=== PATIENT | female | born 1990 | race Caucasian/White ===

== ENCOUNTER → 2018-03-12 07:46 | Outpatient (CLI) | payer OTHER, SELFPAY ==
[2018-03-12 08:18] LABS: hCG Titer Quant., Serum < 1 mIU/mL (<9 non-preg)
== END ==
PROVIDERS: Family Provider Family Medicine; PCP Family Medicine; Visit Provider Obstetrics & Gynecology Reproductive Endocrinology
DX: Z32.00 Encounter for pregnancy test, result unknown (principal)
CPT/HCPCS: 36415; 84702

== ENCOUNTER → 2018-05-14 08:40 | Outpatient (CLI) | payer OTHER, SELFPAY ==
[2018-05-14 09:16] LABS: hCG Titer Quant., Serum 22 mIU/mL (<9 non-preg)
== END ==
PROVIDERS: Family Provider Family Medicine; PCP Family Medicine; Referring Provider Obstetrics & Gynecology Reproductive Endocrinology; Visit Provider Obstetrics & Gynecology Reproductive Endocrinology
DX: Z32.00 Encounter for pregnancy test, result unknown (principal)
CPT/HCPCS: 36415; 84702

== ENCOUNTER → 2018-05-16 08:14 | Outpatient (CLI) | payer OTHER, SELFPAY ==
[2018-05-16 09:08] LABS: hCG Titer Quant., Serum 28 mIU/mL (<9 non-preg)
== END ==
PROVIDERS: Family Provider Family Medicine; PCP Family Medicine; Referring Provider Obstetrics & Gynecology Reproductive Endocrinology; Visit Provider Obstetrics & Gynecology Reproductive Endocrinology
DX: Z32.01 Encounter for pregnancy test, result positive (principal)
CPT/HCPCS: 36415; 84702

== ENCOUNTER → 2018-05-26 10:17 | Outpatient (CLI) | payer OTHER, SELFPAY ==
[2018-05-26 10:48] LABS: hCG Titer Quant., Serum 2 mIU/mL (<9 non-preg)
== END ==
PROVIDERS: Family Provider Family Medicine; PCP Family Medicine; Referring Provider Obstetrics & Gynecology Reproductive Endocrinology; Visit Provider Obstetrics & Gynecology Reproductive Endocrinology
DX: Z32.01 Encounter for pregnancy test, result positive (principal)
CPT/HCPCS: 36415; 84702

== ENCOUNTER → 2018-07-23 07:37 | Outpatient (CLI) | payer OTHER, SELFPAY ==
[2018-07-23 08:30] LABS: hCG Titer Quant., Serum 139 mIU/mL (<9 non-preg)
--- OUTSIDE RECORDS SUMMARY | 2018-09-08 02:33 | XMS RPT_ITS ---
:1990 Author Organization OHIP Care Team Providers Name Role Phone ROS KELLY Attending Unavailable ROS KELLY Referring Unavailable ROS KELLY Attending Unavailable ROS KELLY Referring Unavailable ROS KELLY Attending Unavailable ROS KELLY Referring Unavailable ROBIN, ROS Attending Unavailable ROS KELLY Referring Unavailable Cebul III, Russell Primary Care Unavailable ROS KELLY Attending Unavailable ROS KELLY Referring Unavailable Cebul III, Russell Primary Care Unavailable ROS KELLY Attending Unavailable ROS KELLY Referring Unavailable Cebul III, Russell Primary Care Unavailable ROS KELLY Attending Unavailable KELLY, ROS Referring Unavailable Cebul III, Russell Primary Care Unavailable KELLY, ROS Attending Unavailable KELLY, ROS Referring Unavailable Cebul III, Russell Primary Care Unavailable KELLY, ROS Attending Unavailable KELLY, ROS Referring Unavailable Cebul III, Russell Primary Care Unavailable PROBLEMS PROBLEMS DATE TYPE CONDITION / CODE ATTENDING STATUS SOURCE 07/25/2018 Unknown Z32.01 - Encounter ROS KELLY Active [place] for test, Community result positive / Hospital Z32.01(ICD-10) Repository 07/23/2018 Unknown Z32.00 - Encounter ROS KELLY Active [place] for test, Community result unknown / Hospital Z32.00(ICD-10) Repository 11/15/2017 Admitting Encntr screen for ROBIN, ROS Soriano Active [facility] Diagnosis infections w sexl System mode of transmiss / Repository Z11.3(ICD-10) 11/15/2017 Admitting Encounter for KELLY, ROS Soriano Active [facility] Diagnosis screening for human System immunodeficiency Repository virus / Z11.4(ICD-10) 11/15/2017 Admitting Encounter for KELLY, ROS Soriano Active [facility] Diagnosis screening for oth System infec/parastc Repository diseases / Z11.8(ICD-10) 11/15/2017 Admitting Encounter for KELLY, ROS Soriano Active [facility] Diagnosis fertility testing / System Z31.41(ICD-10) Repository 10/11/2017 Admitting Encounter for ROS KELLY Active [facility] Diagnosis test, System result unknown / Repository Z32.00(ICD-10) 09/10/2017 Admitting Dysmenorrhea, ROS KELLY Active [facility] Diagnosis unspecified / System N94.6(ICD-10) Repository 09/10/2017 Admitting Polycystic ovarian ROS KELLY Active [facility] Diagnosis syndrome / System E28.2(ICD-10) Repository PROCEDURES PROCEDURES No Procedure Records FoundRESULTS RESULTS HCG TITER QUANT., Collected: 07/25/2018 Status: F Source: [place] [facility] 7:27 AM [facility] REPOSITORY TYPE CODE TESTS RESULT OUT OF RANGE REFERENCE UNITS LAB L700.8000 <9 non-preg mIU/mL High HCG 261 QUANT. Performed By: #### L700.8000 #### [facility] [place], [address] HCG TITER QUANT., Collected: 07/23/2018 Status: F Source: [place] [facility] 7:40 AM [facility] REPOSITORY TYPE CODE TESTS RESULT OUT OF RANGE REFERENCE UNITS LAB L700.8000 <9 non-preg mIU/mL High HCG 139 QUANT. Performed By: #### L700.8000 #### [facility] [address] [place], [address] HCG TITER QUANT., Collected: 05/26/2018 Status: F Source: [place] [facility] 10:21 AM [facility] REPOSITORY TYPE CODE TESTS RESULT OUT OF RANGE REFERENCE UNITS LAB L700.8000 <9 non-preg mIU/mL Normal HCG 2 QUANT. Performed By: #### L700.8000 #### [facility] [address] [place], [address] HCG TITER QUANT., Collected: 05/16/2018 Status: F Source: [place] [facility] 8:32 AM [facility] REPOSITORY TYPE CODE TESTS RESULT OUT OF RANGE REFERENCE UNITS LAB L700.8000 <9 non-preg mIU/mL High HCG 28 QUANT. Performed By: #### L700.8000 #### [facility] [address] [place], [address] HCG TITER QUANT., Collected: 05/14/2018 Status: F Source: [place] [facility] 8:47 AM [facility] REPOSITORY TYPE CODE TESTS RESULT OUT OF RANGE REFERENCE UNITS LAB L700.8000 <9 non-preg mIU/mL High HCG 22 QUANT. Performed By: #### L700.8000 #### [facility] [address] [place], [address] HCG TITER QUANT., Collected: 03/12/2018 Status: F Source: [place] [facility] 7:52 AM [facility] REPOSITORY TYPE CODE TESTS RESULT OUT OF RANGE REFERENCE UNITS LAB L700.8000 <9 non-preg mIU/mL Normal HCG < 1 QUANT. Performed By: #### L700.8000 #### [facility] [address] [place], [address] HIV 1,2 AB; P24 Collected: 11/15/2017 Status: F Source: [facility] 10:24 AM SYSTEM REPOSITORY TYPE CODE TESTS RESULT OUT OF REFERENCE UNITS RANGE LAB HIVA Nonreactive NONREACTIVE HIV 1,2 Ab; p24 Ag Result Comment: Results obtained using the FDA cleared 4th generation HIV test. This test detects antibodies to HIV1, HIV2, HIV Group O, and the presence of the HIV-1 p24 antigen. A Non-Reactive re- sult indicates the patient is negative for both HIV antibody and HIV p24 antigen. All reactive results will undergo reflex confirmation testing at an additional charge. Performed By: #### HIV4, HBSAG, HEPC, RPR #### The performing lab is in the report. HEP B SURFACE AG Collected: 11/15/2017 Status: F Source: [employer] 10:24 AM SYSTEM REPOSITORY TYPE CODE TESTS RESULT OUT OF REFERENCE UNITS RANGE LAB HBSAG Not-Detected Hep B Surface NOT DETECTED Ag Performed By: #### HIV4, HBSAG, HEPC, RPR #### The performing lab is in the report. HEP C ANTIBODY Collected: 11/15/2017 Status: F Source: [employer] 10:24 AM SYSTEM REPOSITORY TYPE CODE TESTS RESULT OUT OF REFERENCE UNITS RANGE LAB HEPC Not-Detected Hep C Antibody NOT DETECTED Result Comment: Patients with DETECTED Hepatitis C Ab results should have a new specimen submitted for supplemental testing with a Hepatitis C Quantitative RNA assay (viral load), if clinically indicated. Performed By: #### HIV4, HBSAG, HEPC, RPR #### The performing lab is in the report. RPR, QUAL Collected: 11/15/2017 Status: F Source: [employer] 10:24 AM SYSTEM REPOSITORY TYPE CODE TESTS RESULT OUT OF REFERENCE UNITS RANGE LAB RPR Non-Reactive NONREACTIVE RPR, Qual Performed By: #### HIV4, HBSAG, HEPC, RPR #### The performing lab is in the report. Observed: 11/15/2017 Status: F Source: [employer] CHLAMYDIA AND GC PCR 9:00 AM SYSTEM REPOSITORY PANEL CTPCR --> Status: F NOT Detected Chlamydia trachomatis Nucleic Acid NOT Detected by DNA Amplification using the [employer] System. Culture is the only recommended test in medical-legal cases such as suspected child abuse or molestation. Chlamydia trachomatis Nucleic Acid NOT Detected by DNA Amplification using the CepNearpodid System. Culture is the only recommended test in medical-legal cases such as suspected child abuse or molestation. NOT Detected Neisseria gonorrhoeae Nucleic Acid NOT Detected by DNA Amplification using the [employer] System. Culture is the only recommended test in medical-legal cases such as suspected child abuse or molestation. Performed By: #### CTNGP #### The performing lab is in the report. HCG QUANTITATIVE Collected: 10/11/2017 Status: F Source: [employer] 10:15 AM SYSTEM REPOSITORY TYPE CODE TESTS RESULT OUT OF REFERENCE UNITS RANGE LAB 3QWNT < 3 m[IU]/mL hCG Quantitative <2 Performed By: #### QWNT #### The performing lab is in the report. HCG QUANTITATIVE Collected: 09/10/2017 Status: F Source: [employer] 10:34 AM SYSTEM REPOSITORY TYPE CODE TESTS RESULT OUT OF REFERENCE UNITS RANGE LAB 3QWNT < 3 m[IU]/mL hCG Normal Quantitative <2 Performed By: #### QWNT #### [address] [address] 17-HYDROXYPROGESTERONE, QUANT Collected: Status: F Source: [facility] 09/10/2017 10:34 AM HEALTH SYSTEM REPOSITORY TYPE CODE TESTS RESULT OUT OF REFERENCE UNITS RANGE LAB 17HPR <=206.00 ng/dL 17 [place] Normal Progesterone 34.80 Result Comment: INTERPRETIVE INFORMATION for 17-Hydroxyprogesterone in females: Follicular 15 to 70 ng/dL Luteal 35 to 290 ng/dL REFERENCE INTERVAL: 17-Hydroxyprogesterone Qnt, HPLC-MS/MS Access complete set of age- and/or gender-specific reference intervals for this test in the [employer] [facility] Test Directory ([employer]). Test developed and characteristics determined by [employer]. See Compliance Statement B: [employer]/CS Performed by [employer], [address] [place] [address] www.[employer], Wei Sheppard MD - Lab. Director Performed By: #### QWNT #### [address] [address] ALLERGIES ALLERGIES No Allergies Records FoundENCOUNTERS ENCOUNTERS ADMIT/DISCHARGE ACCOUNT NUMBER ADMITTING ENCOUNTER LOCATION SOURCE CLASS 07/25/2018 [id number] Ambulatory [facility] ding:LAB Repository 07/23/2018 [id number] Ambulatory [facility] ding:LAB Repository 05/26/2018 [id number] Ambulatory [facility] ding:LAB Repository 05/16/2018 [id number] Ambulatory [facility] ding:LAB Repository 05/14/2018 [id number] Ambulatory [facility] ding:LAB Repository 03/12/2018 [id number] Ambulatory [facility] ding:LAB Repository 11/15/2017 [id number] Ambulatory [facility] Repository 10/11/2017 [id number] Ambulatory [facility] Repository 09/10/2017 [id number] Ambulatory [facility] Repository PAYERS PAYERS ENCOUNTER GUARANTOR PAYER SUBSCRIBER SOURCE 07/25/2018 LILLIE Crum [id number] Primary NILSON E LABDOB: [place] Insurance:[employer] [id number] Number: [facility] [id number]: 330 [id number] Repository [phone] () Date:1137-77-36BG [address] [address]LO: 07/25/2018 Secondary NOT GIVENUNK [place] Insurance:SELF PAY [facility] Number: Effective Repository Date:2018-07-25 07/23/2018 LILLIE Crum [id number] Primary NILSON E LABDOB: [place] Insurance:[employer] [place]HotelHotel)[facility] [id number] Number: Hospital [id number]: 330 [id number] Repository [phone] () Date:3248-85-02RX [address] [address]CG: 07/23/2018 Secondary NOT GIVENUNK [place] Insurance:SELF PAY [facility] Number: Effective Repository Date:2018-07-23 05/26/2018 LILLIE Crum [id number] Primary NILSON E LABDOB: [place] Insurance:[employer] [place]elHotel)[facility] [id number] Number: Hospital [id number]: 330 [id number] Repository [phone] (HP) Date:3678-20-57BJ [address] [address]UI: 05/26/2018 Secondary NOT GIVENUNK [place] Insurance:SELF PAY [facility]: Effective Repository Date:2018-05-26 05/16/2018 LILLIE L [id number] Primary NILSON E LABDOB: [place] [facility] [id number] Number: Hospital [id number]: 330 [id number] Repository [phone] (HP) Date:9127-03-18JN [address] [address]LQ: 05/16/2018 Secondary NOT GIVENUNK [place] Insurance:SELF PAY [facility] Number: Effective Repository Date:2018-05-16 05/14/2018 LILLIE L [id number] Primary NILSON E LABDOB: [place] Insurance:[facility] [id number] Number: Hospital [id number]: 330 [id number] Repository [phone] () Date:8321-55-14AJ [address] [address]II: 05/14/2018 Secondary NOT GIVENUNK [place] Insurance:SELF PAY [facility] Number: Effective Repository Date:2018-05-14 03/12/2018 LILLIE L [id number] Primary NILSON LABUNK [place] Insurance:[place] icy Number: Hospital [id number]: 330 [id number] Repository [phone] (HP) Date:4522-11-92VM [address] [address]GS: 03/12/2018 Secondary NOT GIVENUNK [place] Insurance:SELF PAY [facility] Number: Effective Repository Date:2018-03-12 11/15/2017 Lillie L LabDOB: Primary Lillie L LabDOB: [facility] Insurance:[employer] [id number] System [place] icy Number: Effective Repository [place], [place] Date: [address]Aqf: (HP) 10/11/2017 Lillie L LabDOB: Primary Lillie L LabDOB: [facility] Insurance:[employer] [id number] System [place] icy Number: Effective [place]ository [place], [place] Date: [address]Arg: (HP) 09/10/2017 Lillie L LabDOB: Primary Lillie L LabDOB: [facility] Insurance:[employer] [id number] System [place] icy Number: Effective Repository [place], [place] Date: [address]Cgw: (HP)
== END ==
PROVIDERS: Family Provider Family Medicine; PCP Family Medicine; Referring Provider Obstetrics & Gynecology Reproductive Endocrinology; Visit Provider Obstetrics & Gynecology Reproductive Endocrinology
DX: Z32.00 Encounter for pregnancy test, result unknown (principal)
CPT/HCPCS: 36415; 84702

== ENCOUNTER → 2018-07-25 07:24 | Outpatient (CLI) | payer OTHER, SELFPAY ==
[2018-07-25 07:58] LABS: hCG Titer Quant., Serum 261 mIU/mL (<9 non-preg)
--- OUTSIDE RECORDS SUMMARY | 2018-09-09 19:06 | XMS RPT_ITS ---
[...] Unknown Z32.01 - Encounter ROS KELLY Active [place] for test, Community result positive / Hospital Z32.01(ICD-10) Repository 07/23/2018 Unknown Z32.00 - Encounter ROS KELLY Active [facility] for test, Community result unknown / Hospital Z32.00(ICD-10) Repository 11/15/2017 Admitting Encntr screen for ROBIN, ROS Soriano Active [employer] Diagnosis infections w sexl System mode of transmiss / Repository Z11.3(ICD-10) 11/15/2017 Admitting Encounter for KELLY, ROS Soriano Active [facility] Diagnosis screening for human System immunodeficiency Repository virus / Z11.4(ICD-10) 11/15/2017 Admitting Encounter for KELLY, ROS Soriano Active [facility] Diagnosis screening for oth System infec/parastc Repository diseases / Z11.8(ICD-10) 11/15/2017 Admitting Encounter for KELLY, ROS Soriano Active [facility] Diagnosis fertility testing / System Z31.41(ICD-10) Repository 10/11/2017 Admitting Encounter for ROS KELLY Active [facility] Diagnosis test, System result unknown / Repository Z32.00(ICD-10) 09/10/2017 Admitting Dysmenorrhea, ROS KELLY Active [facility] Diagnosis unspecified / System N94.6(ICD-10) Repository 09/10/2017 Admitting Polycystic ovarian ROS KELLY Active [facility] Diagnosis syndrome / System E28.2(ICD-10) Repository PROCEDURES PROCEDURES No Procedure Records FoundRESULTS RESULTS HCG TITER QUANT., Collected: 07/25/2018 Status: F Source: [place] [facility] 7:27 AM [facility] REPOSITORY TYPE CODE TESTS RESULT OUT OF RANGE REFERENCE UNITS LAB L700.8000 <9 non-preg mIU/mL High HCG 261 QUANT. Performed By: #### L700.8000 #### [facility] [place], [address] HCG TITER QUANT., Collected: 07/23/2018 Status: F Source: [place] [facility] 7:40 AM [facility] REPOSITORY TYPE CODE TESTS RESULT OUT OF RANGE REFERENCE UNITS LAB L700.8000 <9 non-preg mIU/mL High HCG 139 QUANT. Performed By: #### L700.8000 #### [facility] [address] [place], [address] HCG TITER QUANT., Collected: 05/26/2018 Status: F Source: [place] [facility] 10:21 AM [facility] REPOSITORY TYPE CODE TESTS RESULT OUT OF RANGE REFERENCE UNITS LAB L700.8000 <9 non-preg mIU/mL Normal HCG 2 QUANT. Performed By: #### L700.8000 #### [facility] [address] [place], [address] HCG TITER QUANT., Collected: 05/16/2018 Status: F Source: [place] [facility] 8:32 AM [facility] REPOSITORY TYPE CODE TESTS RESULT OUT OF RANGE REFERENCE UNITS LAB L700.8000 <9 non-preg mIU/mL High HCG 28 QUANT. Performed By: #### L700.8000 #### [facility] [address] [place], [address] HCG TITER QUANT., Collected: 05/14/2018 Status: F Source: [place] [facility] 8:47 AM [facility] REPOSITORY TYPE CODE TESTS RESULT OUT OF RANGE REFERENCE UNITS LAB L700.8000 <9 non-preg mIU/mL High HCG 22 QUANT. Performed By: #### L700.8000 #### [facility] [address] [place], [address] HCG TITER QUANT., Collected: 03/12/2018 Status: F Source: [place] [facility] 7:52 AM [facility] REPOSITORY TYPE CODE TESTS RESULT OUT OF RANGE REFERENCE UNITS LAB L700.8000 <9 non-preg mIU/mL Normal HCG < 1 QUANT. Performed By: #### L700.8000 #### [facility] [address] [place], [address] HIV 1,2 AB; P24 Collected: 11/15/2017 Status: F Source: [facility] [facility] 10:24 AM SYSTEM REPOSITORY TYPE CODE [...] SURFACE AG Collected: 11/15/2017 Status: F Source: [employer] 10:24 AM SYSTEM REPOSITORY TYPE CODE TESTS RESULT OUT OF REFERENCE UNITS RANGE LAB HBSAG Not-Detected Hep B Surface NOT DETECTED Ag Performed By: #### HIV4, HBSAG, HEPC, RPR #### The performing lab is in the report. HEP C ANTIBODY Collected: 11/15/2017 Status: F Source: [employer] 10:24 AM SYSTEM REPOSITORY TYPE CODE TESTS [...] RPR, QUAL Collected: 11/15/2017 Status: F Source: [employer] 10:24 AM SYSTEM REPOSITORY TYPE CODE TESTS RESULT OUT OF REFERENCE UNITS RANGE LAB RPR Non-Reactive NONREACTIVE RPR, Qual Performed By: #### HIV4, HBSAG, HEPC, RPR #### The performing lab is in the report. Observed: 11/15/2017 Status: F Source: [employer] CHLAMYDIA AND GC PCR 9:00 AM SYSTEM REPOSITORY PANEL CTPCR --> Status: F NOT Detected Chlamydia trachomatis Nucleic Acid NOT Detected by DNA Amplification using the [employer] System. Culture is the only recommended test in medical-legal cases such as suspected child abuse or molestation. Chlamydia trachomatis Nucleic Acid NOT Detected by DNA Amplification using the CepFARR Technologies[employer] System. Culture is the only recommended test in medical-legal cases such as suspected child abuse or molestation. NOT Detected Neisseria gonorrhoeae Nucleic Acid NOT Detected by DNA Amplification using the [employer] System. Culture is the only recommended test in medical-legal cases such as suspected child abuse or molestation. Performed By: #### CTNGP #### The performing lab is in the report. HCG QUANTITATIVE Collected: 10/11/2017 Status: F Source: [employer] 10:15 AM SYSTEM REPOSITORY TYPE CODE TESTS RESULT OUT OF REFERENCE UNITS RANGE LAB 3QWNT < 3 m[IU]/mL hCG Quantitative <2 Performed By: #### QWNT #### The performing lab is in the report. HCG QUANTITATIVE Collected: 09/10/2017 Status: F Source: [employer] 10:34 AM SYSTEM REPOSITORY TYPE CODE TESTS RESULT OUT OF REFERENCE UNITS RANGE LAB 3QWNT < 3 m[IU]/mL hCG Normal Quantitative <2 Performed By: #### QWNT #### [address] [address] 17-HYDROXYPROGESTERONE, QUANT Collected: Status: F Source: [facility] 09/10/2017 10:34 AM HEALTH SYSTEM REPOSITORY TYPE CODE TESTS RESULT OUT OF REFERENCE UNITS RANGE LAB 17HPR <=206.00 ng/dL 17 [place] Normal Progesterone 34.80 Result Comment: INTERPRETIVE INFORMATION for 17-Hydroxyprogesterone in females: Follicular 15 to 70 ng/dL Luteal 35 to 290 ng/dL REFERENCE INTERVAL: 17-Hydroxyprogesterone Qnt, HPLC-MS/MS Access complete set of age- and/or gender-specific reference intervals for this test in the [facility] Test Directory ([employer]). Test developed and characteristics determined by [employer]. See Compliance Statement B: [employer]/CS Performed by [facility], [address] [place] [address] www.[employer], Wei Sheppard MD - Lab. Director Performed By: #### QWNT #### [address] [address] ALLERGIES ALLERGIES No Allergies Records FoundENCOUNTERS ENCOUNTERS ADMIT/DISCHARGE ACCOUNT NUMBER ADMITTING ENCOUNTER LOCATION SOURCE CLASS 07/25/2018 [id number] Ambulatory [facility] ding:LAB Repository 07/23/2018 [id number] Ambulatory [facility] ding:LAB Repository 05/26/2018 [id number] Ambulatory [facility] ding:LAB Repository 05/16/2018 [id number] Ambulatory [facility] ding:LAB Repository 05/14/2018 [id number] Ambulatory [facility] ding:LAB Repository 03/12/2018 [id number] Ambulatory [facility] ding:LAB Repository 11/15/2017 [id number] Ambulatory [facility] Repository 10/11/2017 [id number] Ambulatory [facility] Repository 09/10/2017 [id number] Ambulatory [facility] Repository PAYERS PAYERS ENCOUNTER GUARANTOR PAYER SUBSCRIBER SOURCE 07/25/2018 LILLIE Crum [id number] Primary NILSON E LABDOB: [place] Insurance:[employer] [facility] [id number] Number: [facility] [id number]: 330 [id number] Repository [phone] () Date:6791-26-27CA [address] [address]RF: 07/25/2018 Secondary NOT GIVENUNK [place] Insurance:SELF PAY [facility] Number: Effective Repository Date:2018-07-25 07/23/2018 LILLIE Crum [id number] Primary NILSON E LABDOB: [place] Insurance:[employer] [facility] [id number] icy Number: Hospital [id number]: 330 [id number] Repository [phone] () Date:5427-60-99BY [address] [address]PA: 07/23/2018 Secondary NOT GIVENUNK [place] Insurance:SELF PAY [facility] Number: Effective Repository Date:2018-07-23 05/26/2018 LILLIE Crum [id number] Primary NILSON E LABDOB: [place] Insurance:[employer] [facility] [id number] icy Number: Hospital [id number]: 330 [id number] Repository [phone] (HP) Date:6837-70-44BX [address] [address]FU: 05/26/2018 Secondary NOT GIVENUNK [place] Insurance:SELF PAY [facility] Number: Effective Repository Date:2018-05-26 05/16/2018 LILLIE L [id number] Primary NILSON E LABDOB: [place] Insurance:[facility] [id number], [place] icy Number: Hospital [id number]: 330 [id number] Repository [phone] (HP) Date:4911-24-03MI [address] [address]KG: 05/16/2018 Secondary NOT GIVENUNK [place] Insurance:SELF PAY [facility] Hospital Number: Effective Repository Date:2018-05-16 05/14/2018 LILLIE L [id number] Primary NILSON E LABDOB: [place] Insurance:[facility] [id number], [place] icy Number: Hospital [id number]: 330 [id number] Repository [phone] () Date:3938-03-86GY [address] [address]MZ: 05/14/2018 Secondary NOT GIVENUNK [place] Insurance:SELF PAY [facility] Hospital Number: Effective Repository Date:2018-05-14 03/12/2018 LILLIE L [id number] Primary INLSON LABUNK [place] Insurance:[place], [place] icy Number: Hospital [id number]: 330 [id number] Repository [phone] (HP) Date:2419-21-18TQ [address] [address]KF: 03/12/2018 Secondary NOT GIVENUNK [place] Insurance:SELF PAY [facility] Hospital Number: Effective Repository Date:2018-03-12 11/15/2017 Lillie L LabDOB: Primary Lillie L LabDOB: [employer] Insurance:[employer] [id number] System [place] icy Number: Effective Repository [place], [place] Date: [address]Gsn: (HP) 10/11/2017 Lillie L LabDOB: Primary Lillie L LabDOB: [employer] Insurance:[employer] [id number] System [place] icy Number: Effective [place], [place] Date: [address]Suc: (HP) 09/10/2017 Lillie L LabDOB: Primary Lillie L LabDOB: [employer] Insurance:[employer] [id number] System [place] icy Number: Effective Repository [place], [place] Date: [address]Ycc: (HP)
== END ==
PROVIDERS: Family Provider Family Medicine; PCP Family Medicine; Referring Provider Obstetrics & Gynecology Reproductive Endocrinology; Visit Provider Obstetrics & Gynecology Reproductive Endocrinology
DX: Z32.01 Encounter for pregnancy test, result positive (principal)
CPT/HCPCS: 36415; 84702

== ENCOUNTER → 2018-10-27 12:15 | Outpatient (CLI) | payer OTHER, SELFPAY ==
[2018-10-27 09:11] VITALS: BMI 22.6
== END ==
PROVIDERS: Family Provider Family Medicine; PCP Family Medicine; Referring Provider Obstetrics & Gynecology; Visit Provider Obstetrics & Gynecology
DX: R30.0 Dysuria (principal)
CPT/HCPCS: 87086; 87088

== ENCOUNTER → 2019-01-12 | Outpatient (CLI) | payer OTHER, SELFPAY ==
[2019-01-12 08:59] VITALS: BMI 22.6
[2019-01-12 10:15] LABS: Absolute Lymphocyte Count 1.89 X10^3/ul (0.83-4.51); Absolute Neutrophil Count 8.6 X10^3/uL (2.0-7.7); Basophil# 0.02 X10^3/uL; Basophil% 0.2 % (0-1); Eosinophil# 0.03 X10^3/uL; Eosinophils% 0.3 % (0-5); Hematocrit 32.4 % (37-47); Lymphocyte # 1.89 X10^3/ul (4.0); Lymphocyte % 16.7 % (19-41); Mean Corpuscular Hgb 32.9 pg (27.0-32.0); Mean Platelet Vol. 10.2 fl (6.2-12.0); Monocyte# 0.73 X10^3/uL; Monocyte% 6.4 % (0-10); Neutrophil % 75.9 % (47-70); Platelet Count 214 K/mm3 (150-450); RBC Distribution Width CV 13.5 % (11.6-14.6); RBC Distribution Width SD 46.5 fl (35.1-43.9); Red Blood Count 3.34 M/mm3 (4.2-5.4); White Blood Count 11.3 K/mm3 (4.4-11.0)
[2019-01-12 10:18] LABS: POSITIVE COUNT NO; POSITIVE DIFFERENTIAL NO; POSITIVE MORPHOLOGY NO
[2019-01-12 10:23] LABS: Glucose Challenge Gest 1H 50g 141 mg/dL (70-140)
== END | disposition home or self-care (01) ==
LOC: PAVLAB 09:01
PROVIDERS: Family Provider Family Medicine; PCP Family Medicine; Visit Provider Nurse Practitioner Women's Health
DX: O09.90 Supervision of high risk pregnancy, unspecified, unspecified trimester (principal); Z3A.00 Weeks of gestation of pregnancy not specified
CPT/HCPCS: 36415; 82950; 85025; 86850; 86900

== ENCOUNTER → 2019-01-13 06:57 | Outpatient (CLI) | payer OTHER, SELFPAY ==
[2019-01-12 08:59] VITALS: BMI 22.6
[2019-01-13 07:59] LABS: Glucose GTT-Gestation. Fasting 79 mg/dL (<105)
[2019-01-13 09:24] LABS: Glucose GTT-Gestational 1 Hr 133 mg/dL (<190)
[2019-01-13 10:50] LABS: Glucose GTT-Gestational 2 Hr 134 mg/dL (<165)
[2019-01-13 11:26] LABS: Glucose GTT-Gestational 3 Hr 125 L (<145)
== END ==
PROVIDERS: Family Provider Family Medicine; PCP Family Medicine; Referring Provider Nurse Practitioner Women's Health; Visit Provider Nurse Practitioner Women's Health
DX: R73.09 Other abnormal glucose (principal)
CPT/HCPCS: 36415; 82951; 82952

== ENCOUNTER → 2019-03-10 17:05 | Outpatient (CLI) | payer OTHER, SELFPAY ==
[2019-03-10 09:03] VITALS: BMI 22.6
== END ==
PROVIDERS: Family Provider Family Medicine; PCP Family Medicine; Referring Provider Obstetrics & Gynecology; Visit Provider Obstetrics & Gynecology
DX: Z36.85 Encounter for antenatal screening for Streptococcus B (principal)
CPT/HCPCS: 87081

== ENCOUNTER 2019-03-12 08:25 | Inpatient (IN) | payer OTHER, SELFPAY ==
[2019-03-10 09:03] VITALS: BMI 22.6
[2019-03-12 07:07] VITALS: BMI 26.8
[2019-03-12 07:17] LABS: Hematocrit 36.9 % (37-47); Hemoglobin 12.8 g/dL (12.0-15.0); Mean Corp Hgb Conc 34.7 g/dL (32-36); Mean Corpuscular Hgb 33.3 pg (27.0-32.0); Mean Corpuscular Volume 96.1 fL (81-99); Platelet Count 164 K/mm3 (150-450); RBC Distribution Width CV 13.1 % (11.6-14.6); RBC Distribution Width SD 45.6 fl (35.1-43.9); Red Blood Count 3.84 M/mm3 (4.2-5.4); White Blood Count 11.1 K/mm3 (4.4-11.0)
[2019-03-12 07:24] LABS: AST(SGOT) 14 U/L (15-37); Alanine Aminotransfer ALT/SGPT 14 U/L (13-56); Creatinine, Serum 0.69 mg/dL (0.55-1.02); EST Glomerular Filtration Rate 109 mL/min (>60); Est Glom Filt Rate - Afr Amer 131 mL/min (>60); Estimated Creatinine Clearance 101.31 ml/min; Uric Acid 4.6 mg/dL (2.6-6.0)
[2019-03-12 07:25] LABS: Protein, Urine (Random) 10.9 mg/dL (<11.9); Protein:Creat Ratio 371 mg/g CRE (0-200)
[2019-03-12] MEDS: Acetaminophen/Butalbital/Caffe 1 Tablet PO (08:17)
[2019-03-12 08:42] LABS: Partial Thromboplast Time 23.5 Seconds (24.1-36.2)
[2019-03-12] MEDS: 0.9% Saline Lock 10 ML Syringe IV (09:30)
[2019-03-12] MEDS: Oxytocin 30 units/NS 500 ml 30 UNITS/500 ML IV.SOLN IV (09:30)
[2019-03-12] MEDS: 0.9% Normal Saline 100 ML IV.SOLN. INTRA-UTER (09:30)
[2019-03-12] MEDS: Lactated Ringers 1,000 ML 50 ML IV ×3 (09:30→20:04)
--- NOTE | 2019-03-12 15:14 | PCM.HP.OB ---
- Problem List (1) Pre-eclampsia, mild Status: Acute (2) Abnormal glucose affecting Status: Acute Comment: 3GTT normal (3) Supervision of high risk , antepartum Status: Acute Comment: PRR HUGH 04/01/19 gender surprise Catalino (4) Infertility Status: Acute Comment: Frozen Embryo Transfer, cycle number 3. Echo offered- patient to think it over (5) Blood type, Rh negative Status: Acute Comment: rhogam given at 28 weeks (6) Status: Acute Qualifiers: Weeks of gestation: 36 weeks Qualified Code(s): Z3A.36 - 36 weeks gestation of Comment: NIPT nl, gender surprise, carrier negative, discussed AFP. anatomy US WNL. History Date of Admission: 03/12/19 Final HUGH: 04/01/19 Gestational age: 37 Weeks and 2 Days History of this : This is a 29 year-old, G 1P0 at 37 weeks 1 day presents with elevated blood pressures and proteinuria and new diagnosis of preeclampsia with mild features. Patient has had a headache but it does improve with Fioricet. She denies any visual disturbances. She denies any vaginal bleeding or loss of fluid admits good movement no regular contractions. Allergies azithromycin Adverse Reaction (Verified 03/12/19 07:03) Other pt states GI upset Sulfa (Sulfonamide Antibiotics) Adverse Reaction (Verified 03/12/19 07:03) Rash Home Medications: Home Medications Colace 100 mg PO DAILY PRN 03/12/19 Tablet 1 tab PO DAILY PRN 03/12/19 Smoking Status: Never smoker Number of Fetus(es): 1 Heart Tracin moderate variability reactive no decelerations currently 1 tracing [place]: No regular contractions History Past Pregnancies: Past Pregnancies Delivery Date Name GA/Weeks Outcome Route Weight Gender Labor Length Anesthesia Delivery Location Provider FOB Labs: Mom's Labs & Results 03/12/19 03/12/19 03/12/19 06:55 06:55 06:55 WBC 11.1 H RBC 3.84 L Hgb 12.8 Hct 36.9 L MCV 96.1 MCH 33.3 H MCHC 34.7 RDW Std Deviation 45.6 H RDW Coeff of [place]iny[place] 13.1 Plt Count 164 MPV 12.0 PT Cancelled INR Cancelled APTT Cancelled Creatinine 0.69 Estim Creat Clear Calc 101.31 Est GFR (MDRD) Af Amer 131 Est GFR (MDRD) Non-Af 109 Uric Acid 4.6 AST 14 L ALT 14 U Random Total Protein Urine Creatinine Protein/Creatinin Ratio Blood Type Antibody Screen 03/12/19 03/12/19 03/12/19 06:55 06:55 06:55 WBC RBC Hgb Hct MCV MCH MCHC RDW Std Deviation RDW Coeff of [place] Plt Count MPV PT INR APTT Creatinine Estim Creat Clear Calc Est GFR (MDRD) Af Amer Est GFR (MDRD) Non-Af Uric Acid AST ALT U Random Total Protein 10.9 Urine Creatinine 29.40 Protein/Creatinin Ratio 371 H Blood Type A NEGATIVE Antibody Screen Not Reportable NEGATIVE 03/12/19 07:55 WBC RBC Hgb Hct MCV MCH MCHC RDW Std Deviation RDW Coeff of [place] Plt Count MPV PT 13.0 INR 1.0 APTT 23.5 L Creatinine Estim Creat Clear Calc Est GFR (MDRD) Af Amer Est GFR (MDRD) Non-Af Uric Acid AST ALT U Random Total Protein Urine Creatinine Protein/Creatinin Ratio Blood Type Antibody Screen Course Did the patient receive Yes care? Labs Blood Type: A RH: NEGATIVE RPR/VDRL/Syphilis Nonreactive Rubella status Immune HbSAg Negative Date Done: 08/22/18 Chlamydia Negative Gonorrhea Negative HIV/AIDS Non-Reactive Group B Strep: Collected on Admission Current Obstetrical History Gestational Diabetes No Incompetent Cervix No Infertility Yes IUGR No Macrosomia No Hypertension/Pre-eclampsia Yes Placenta Previa/Abruption No PTL/PROM No Uterine anomaly No Oligohydramnios No Polyhydramnios No Multiple gestation No Past Medical History Asthma No Diabetes No Hypertension No Heart disease Yes Mitral valve prolapse No Neurologic/Seizure disorder/ No Migraines Kidney disease No Liver disease No Varicosities No Clotting disorders/Hx of DVT No Thyroid Dysfunction No Other medical diseases No Psychiatric disorders No Major trauma No Abnormal PAP smear No Sleep apnea No Mammogram in the last 2 years No Enter DETAILS of medical mild leak of aortic valve history Social History Marital Status: Alleged father Catalino Hx Smoking No Smoking Status Never smoker Expected Infant Delivery Method: Spontaneous Vaginal Review of Systems Constitutional: Denies: Fever, Malaise Eyes: Denies: Blurred vision, Vision Change HEENT: Reports: Head Aches. Denies: Visual Changes Cardiovascular: Denies: Chest Pain, Palpitations Respiratory: Denies: Cough, Shortness of Breath, Wheezing Gastrointestinal: Denies: Abdominal Pain, Diarrhea, Nausea, Vomiting Genitourinary: Denies: Dysuria, Hematuria Musculoskeletal: Denies: Joint Pain, Muscle pain Skin: Denies: Lesions, Rash Neurological: Reports: Headaches. Denies: Blurred vision, Focal weakness Psychiatric: Denies: Anxiety, Depression Endocrine: Denies: Heat/ Cold Intolerance Hematologic/ Lymphatic: Denies: Easy Bruising, Easy Bleeding Physical Exam General: Alert, Cooperative, No apparent distress HEENT: Atraumatic, Normocephalic. Negative for: Thyromegaly, Lymphadenopathy Cardiovascular: Regular rate Lungs: Normal air movement Abdomen: Soft, Non Tender, Gravid Neurological: Deep Tendon Reflexes 2+/4 and Symmetrical, Neuro grossly intact. 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 Negative for: Vulvar lesions Estimated gestational size: Appropriate for gestational size Presentation: Cephalic Cervix Dilation (cm): 1 Station: -2 Effacement (%): 50 Assessment/Plan All Active Problems (Last Reviewed 03/10/19 @ 08:50 by Eladia Morrison) Pre-eclampsia, mild (Acute) Abnormal glucose affecting (Acute) Supervision of high risk , antepartum (Acute) Infertility (Acute) Blood type, Rh negative (Acute) (Acute) This is a 29 year-old, G 1P0, at 37 weeks gestational age induction of labor preeclampsia with mild features. Patient presents IOL, plan management for , pitocin/AROM after fb. Pain management: Plans epidural. GBS unknown but possible positive so penicillin given. Management of any complications: Proteinuria but other labs within normal limits I have reviewed the [facility] and made any clinically relevant updates.
[2019-03-12] MEDS: fentaNYL-bupivacaine (epidural) 100 ML BAG EPIDURAL ×2 (17:33→22:00)
[2019-03-13] MEDS: Lactated Ringers 1,000 ML 50 ML IV (01:19)
[2019-03-13] MEDS: fentaNYL-bupivacaine (epidural) 100 ML BAG EPIDURAL (02:15)
[2019-03-13] MEDS: Oxytocin 30 units/NS 500 ml 30 UNITS/500 ML IV.SOLN 334 UNITS IV (04:45)
[2019-03-13] MEDS: Methylergonovine 0.2 MG/ML Ampul IM (04:48)
[2019-03-13] MEDS: miSOPROStol 200 MCG Tablet 1000 MCG RECTAL (04:55)
[2019-03-13] MEDS: Ondansetron 4 MG/2 ML Vial IV (04:58)
[2019-03-13] MEDS: Oxytocin 30 units/NS 500 ml 30 UNITS/500 ML IV.SOLN 167 UNITS IV (05:15)
--- NOTE | 2019-03-13 05:45 | OP.PCM_ITS ---
Problem List (1) Pre-eclampsia, mild Status: Acute (2) Abnormal glucose affecting Status: Acute Comment: 3GTT normal (3) Supervision of high risk , antepartum Status: Acute Comment: PRR HUGH 04/01/19 gender surprise Catalino (4) Infertility Status: Acute Comment: Frozen Embryo Transfer, cycle number 3. Echo offered- patient to think it over (5) Blood type, Rh negative Status: Acute Comment: rhogam given at 28 weeks (6) Status: Acute Qualifiers: Weeks of gestation: 36 weeks Qualified Code(s): Z3A.36 - 36 weeks gestation of Comment: NIPT nl, gender surprise, carrier negative, discussed AFP. anatomy US WNL. (7) Vaginal delivery Status: Acute (8) Uterine atony Status: Acute Vaginal Delivery Maternal Presentation: Medically Indicated Induction Induction labor preeclampsia 37 weeks Method of Induction: Pitocin, Bose Bulb Medical Reason for Induction: Preeclampsia, eclampsia Amniotic Membrane Rupture Type: Artificial Amniotic Fluid Description: Clear Final HUGH: 04/01/19 Gestational age: 37 Weeks and 2 Days Date of Procedure: 03/13/19 Pre-Operative Diagnosis: Preeclampsia with mild features Post-Operative Diagnosis: same Surgery/ Procedure Performed: Spontaneous Vaginal Delivery Type of Anesthesia: Epidural Description of Procedure: Patient began pushing and delivered the head in the CHERYL presentation. The head was delivered atraumatically and a loose nuchal cord ?1 was identified and easily reduced over the 's head. The anterior and posterior shoulders delivered without complication followed by the rest of the infant and the was placed on the maternal abdomen. Delayed cord clamping was employed for approximately 60 seconds. Cord was clamped and cut and gentle traction was applied to the cord and the placenta delivered spontaneously immediately following it was noted to be intact with three-vessel cord. The perineum and vagina were inspected and noted to have a second-degree perineal laceration was repaired in the usual fashion with 3-0 Vicryl rapide. Uterine atony was encountered and remedied with bimanual massage, patient's blood pressures had been low throughout the second half of the labor immediately prior to delivery, medicines given were Methergine Hemabate Pitocin and tranexamic acid. Curettage was also performed due to suspicion of retained products but no significant tissue was collected and the lining felt to be within normal limits on manual exploration.. EBL was 800. Patient and infant tolerated delivery well. Presentation: CHERYL Placental Delivery Description: Spontaneous Placenta Disposition: [facility] Cord Vessel Description: 3 Vessels Nuchal Cord Compression: Without compression Cord Entanglement: Around neck x 1, loose Drain: Bose to straight drain Estimated Blood Loss: 800 A gender: Female Episiotomy Description: None Laceration: Perineal Extension/lac, 2nd degree Medications given after delivery: IV Pitocin, IM Methergin, IM Hemabate, - - tranexamic acid Complications: - - uterine atony, will monitor blood loss for next 24 hours to diagnose PPH if over 1000cc Multi Select Codes - Urinary/Genital Urinary/Genital CPT Codes: 53304 Delivery [facility]
[2019-03-13] MEDS: 0.9% Saline Lock 10 ML Syringe IV ×2 (07:28→21:01)
[2019-03-13] MEDS: Senna/Docusate Sodium 1 Tablet PO (07:41)
[2019-03-13] MEDS: Acetaminophen 500 MG Tablet 1000 MG PO ×2 (07:42→17:38)
[2019-03-13 08:00] VITALS: BP 115/60; PULSE 79; RESP 17; TEMP 36.7; O2SAT 98
[2019-03-13 12:30] VITALS: BP 118/75; PULSE 90; RESP 17; TEMP 36.6; O2SAT 100
[2019-03-13] MEDS: Naproxen 250 MG Tablet 500 MG PO ×2 (13:40→22:25)
[2019-03-13 15:18] LABS: Hemoglobin 10.9 g/dL (12.0-15.0); Mean Corp Hgb Conc 35.2 g/dL (32-36); Mean Corpuscular Volume 96.6 fL (81-99); Mean Platelet Vol. 12.1 fl (6.2-12.0); Platelet Count 162 K/mm3 (150-450); RBC Distribution Width CV 12.9 % (11.6-14.6); RBC Distribution Width SD 45.3 fl (35.1-43.9); Red Blood Count 3.21 M/mm3 (4.2-5.4)
[2019-03-13 15:58] VITALS: BP 118/78; PULSE 81; RESP 16; TEMP 36.7; O2SAT 98
[2019-03-13 21:04] VITALS: BP 110/79; PULSE 96; RESP 18; TEMP 36.7
[2019-03-14 00:49] VITALS: BP 118/79; PULSE 82; RESP 16; TEMP 36.3
[2019-03-14 04:55] VITALS: BP 103/65; PULSE 90; RESP 16; TEMP 36.8
[2019-03-14 08:15] VITALS: BP 118/78; PULSE 85; RESP 16; TEMP 36.6; O2SAT 98
--- NOTE | 2019-03-14 09:14 | PCM.PN.OB ---
Patient Problems: Active and Suspected Problems (Last Reviewed 03/10/19 @ 08:50 by Eladia Morrison) Pre-eclampsia, mild (Acute) Vaginal delivery (Acute) Uterine atony (Acute) Subjective: doing well no complaints pain controlled no CP SOB N V ambulating well tolerating po lochia moderate, going well - Physical Exam General: Alert, Oriented x3 Vital Signs Temp Pulse Resp BP Pulse Ox 98 F 85 16 118/78 98 03/14/19 08:15 03/14/19 08:15 03/14/19 08:15 03/14/19 08:15 03/14/19 08:15 Oxygen Delivery Method Room Air Weight: 153 lb 10.595 oz Body Mass Index (BMI) 26.8 Intake and Output for Last 24 Hours 03/12/19 03/13/19 03/14/19 23:59 23:59 23:59 Intake Total 1500 / 1500 2106 / 2106 Output Total 700 / 700 1598 / 1598 Balance 800 / 800 508 / 508 Laboratory Tests Past 24 Hrs 03/13/19 15:09 WBC 28.0 H RBC 3.21 L Hgb 10.9 L Hct 31.0 L MCV 96.6 MCH 34.0 H MCHC 35.2 RDW Std Deviation 45.3 H RDW Coeff of [place] 12.9 Plt Count 162 MPV 12.1 H Medical Necessity - Tobacco Use Smoking Status: Never smoker Assessment/Plan All Active Problems (Last Reviewed 03/10/19 @ 08:50 by Eladia Morrison) Pre-eclampsia, mild (Acute) Vaginal delivery (Acute) Uterine atony (Acute) Abnormal glucose affecting (Acute) Supervision of high risk , antepartum (Acute) Infertility (Acute) Blood type, Rh negative (Acute) (Acute) s/p PPD # 1 1. routine post delivery care 2. breast feeding- support given 3. rh negative- rhogam prn 4. rubella immune overall blood loss in 24 hour 950, uterine atony resolved, no hemorrhage.
[2019-03-14 14:40] VITALS: BP 113/77; PULSE 85; RESP 16; TEMP 36.8
[2019-03-14 20:00] VITALS: BP 118/72; PULSE 96; RESP 18; TEMP 36.2
[2019-03-15 01:55] VITALS: BP 117/71; PULSE 86; RESP 18; TEMP 36.7
--- NOTE | 2019-03-15 05:12 | DCINST_ITS ---
Discharge Diet: No Restrictions Discharge Activity: Return to Normal Activity, May not drive while taking narcotic pain medications., May Shower May resume sexual activity in: 4-6 weeks Call your doctor if your incision/area has: Continuous Slow Oozing, Sudden Increased Bleeding, Increased Pain/ Swelling, Increased Redness, Foul Smelling Discharge Additional Instructions: If you experience any of the following, contact your healthcare provider. * Bleeding that soaks a pad every hour for 2 hours * Fever 100.4 or higher * Unrelieved incision or abdominal pain * Swelling, redness, discharge or bleeding from your incision or episiotomy site * Your incision begins to separate * Problems urinating (including inability to urinate or burning while urinating). * Visual changes * Severe headache * Flu-like symptoms * Pain or redness in one of both of your breasts * Pain, warmth, tenderness or swelling in your legs, especially the calf area * Frequent nausea and vomiting * Symptoms of depression or anxiety If you experience any of the following, call 911 or go to the nearest Emergency Room. * Chest pain * Problems breathing * Seizure activity * Partial or complete paralysis of a body part, slurred speech, weakness or drooping of the face, or a sudden inability to walk or hold your balance Allergies/Adverse Reactions: Allergies azithromycin Adverse Reaction (Verified 03/12/19 07:03) Other pt states GI upset Sulfa (Sulfonamide Antibiotics) Adverse Reaction (Verified 03/12/19 07:03) Rash Medications to take at Discharge Colace 100 mg PO DAILY PRN 03/12/19 Tablet 1 tab PO DAILY PRN 03/12/19 Please Follow Up With: Alfreda Mcgovern MD - [phone] When: Call to make an appointment with your doctor in 6 weeks. If you had elevated Blood pressure or 4th degree laceration you will need to be seen in 2 weeks. Primary Care Physician: Russell Silveira III, MD [Primary Care Provider] - Test Results: Test results from this visit will be discussed in further detail at your follow- up appointment, if applicable.
--- NOTE | 2019-03-15 05:12 | PCM.DCVAG ---
Discharge Diet: No Restrictions Discharge Activity: Return to Normal Activity, May not drive while taking narcotic pain medications., May Shower May resume sexual activity in: 4-6 weeks Call your doctor if your incision/area has: Continuous Slow Oozing, Sudden Increased Bleeding, Increased Pain/ Swelling, Increased Redness, Foul Smelling Discharge Additional Instructions: If you experience any of the following, contact your healthcare provider. Bleeding that soaks a pad every hour for 2 hours Fever 100.4 or higher Unrelieved incision or abdominal pain Swelling, redness, discharge or bleeding from your incision or episiotomy site Your incision begins to separate Problems urinating (including inability to urinate or burning while urinating). Visual changes Severe headache Flu-like symptoms Pain or redness in one of both of your breasts Pain, warmth, tenderness or swelling in your legs, especially the calf area Frequent nausea and vomiting Symptoms of depression or anxiety If you experience any of the following, call 911 or go to the nearest Emergency Room. Chest pain Problems breathing Seizure activity Partial or complete paralysis of a body part, slurred speech, weakness or drooping of the face, or a sudden inability to walk or hold your balance Allergies/Adverse Reactions: Allergies azithromycin Adverse Reaction (Verified 03/12/19 07:03) Other pt states GI upset Sulfa (Sulfonamide Antibiotics) Adverse Reaction (Verified 03/12/19 07:03) Rash Medications to take at Discharge Colace 100 mg PO DAILY PRN 03/12/19 Tablet 1 tab PO DAILY PRN 03/12/19 Please Follow Up With: Alfreda Mcgovern MD - [phone] When: Call to make an appointment with your doctor in 6 weeks. If you had elevated Blood pressure or 4th degree laceration you will need to be seen in 2 weeks. Primary Care Physician: Russell Silveira III, MD [Primary Care Provider] - Test Results: Test results from this visit will be discussed in further detail at your follow-up appointment, if applicable.
--- NOTE | 2019-03-15 07:41 | PCM.PN.OB ---
Patient Problems: Active and Suspected Problems (Last Reviewed 03/10/19 @ 08:50 by Eladia Morrison) Pre-eclampsia, mild (Acute) Vaginal delivery (Acute) Uterine atony (Acute) Subjective: doing well no complaints pain controlled no CP SOB N V ambulating well tolerating po lochia moderate, going well - Physical Exam General: Alert, Oriented x3 Vital Signs Temp Pulse Resp BP Pulse Ox 98.0 F 86 18 117/71 98 03/15/19 01:55 03/15/19 01:55 03/15/19 01:55 03/15/19 01:55 03/14/19 08:15 Oxygen Delivery Method Room Air Weight: 153 lb 10.595 oz Body Mass Index (BMI) 26.8 Intake and Output for Last 24 Hours 03/13/19 03/14/19 03/15/19 23:59 23:59 23:59 Intake Total 2106 / 2106 Output Total 1598 / 1598 Balance 508 / 508 Medical Necessity - Tobacco Use Smoking Status: Never smoker Assessment/Plan All Active Problems (Last Reviewed 03/10/19 @ 08:50 by Eladia Morrison) Pre-eclampsia, mild (Acute) Vaginal delivery (Acute) Uterine atony (Acute) Abnormal glucose affecting (Acute) Supervision of high risk , antepartum (Acute) Infertility (Acute) Blood type, Rh negative (Acute) (Acute) s/p PPD # 2 1. routine post delivery care 2. breast feeding- support given 3. rh negative- rhogam prn 4. rubella immune dc home overall blood loss in first 24 hours 950, uterine atony resolved, no hemorrhage.
[2019-03-15 07:45] VITALS: BP 134/90; PULSE 80; RESP 16; TEMP 36.4; O2SAT 100
== END 2019-03-15 10:35 | disposition home or self-care (01) | DRG 806 ==
LOC: WPOUT 08:28
PROVIDERS: Admitting Provider Obstetrics & Gynecology; Family Provider Family Medicine; PCP Family Medicine; Referring Provider Obstetrics & Gynecology; Visit Provider Obstetrics & Gynecology
DX: O14.04 Mild to moderate pre-eclampsia, complicating childbirth (principal); O36.0130 Maternal care for anti-D [Rh] antibodies, third trimester, not applicable or unspecified; Z37.0 Single live birth; O75.89 Other specified complications of labor and delivery; O99.413 Diseases of the circulatory system complicating pregnancy, third trimester; I35.8 Other nonrheumatic aortic valve disorders; O99.810 Abnormal glucose complicating pregnancy; O69.81X0 Labor and delivery complicated by cord around neck, without compression, not applicable or unspecified; O70.1 Second degree perineal laceration during delivery; O99.820 Streptococcus B carrier state complicating pregnancy; Z3A.37 37 weeks gestation of pregnancy
CPT/HCPCS: 36415; 59025; 59050; 82565; 82570; 84156; 84450; 84460; 84550; 85027; 85610; 85730; 86850; 86900; 99218; J7120; A4216; G0378; J2405

== ENCOUNTER → 2019-04-23 16:59 | Outpatient (CLI) | payer OTHER, SELFPAY ==
[2019-04-23 15:27] VITALS: BMI 26.8
[2019-05-19 15:39] LABS: HPV Reflexed? NOT INDICATED
== END ==
PROVIDERS: Family Provider Family Medicine; PCP Family Medicine; Referring Provider Obstetrics & Gynecology; Visit Provider Obstetrics & Gynecology
DX: Z12.4 Encounter for screening for malignant neoplasm of cervix (principal)
CPT/HCPCS: 88175; G0145

== ENCOUNTER → 2020-10-06 07:25 | Outpatient (CLI) | payer OTHER, SELFPAY ==
[2019-04-23 15:27] VITALS: BMI 26.8
[2020-10-06 08:10] LABS: hCG Titer Quant., Serum 98 mIU/mL (1-3)
== END ==
PROVIDERS: PCP Family Medicine; Referring Provider Obstetrics & Gynecology Reproductive Endocrinology; Visit Provider Obstetrics & Gynecology Reproductive Endocrinology
DX: Z32.00 Encounter for pregnancy test, result unknown (principal)
CPT/HCPCS: 36415; 84702

== ENCOUNTER → 2020-10-10 07:28 | Outpatient (CLI) | payer OTHER, SELFPAY ==
[2019-04-23 15:27] VITALS: BMI 26.8
[2020-10-10 08:05] LABS: hCG Titer Quant., Serum 475 mIU/mL (1-3)
== END ==
PROVIDERS: PCP Family Medicine; Referring Provider Obstetrics & Gynecology Reproductive Endocrinology; Visit Provider Obstetrics & Gynecology Reproductive Endocrinology
DX: Z32.01 Encounter for pregnancy test, result positive (principal)
CPT/HCPCS: 36415; 84702

== ENCOUNTER 2020-12-17 02:13 | Emergency (ER) | payer OTHER, SELFPAY ==
[2020-11-24 11:48] VITALS: BMI 26.8
[2020-12-17 02:15] VITALS: BP 126/90; PULSE 103; RESP 16; TEMP 36.9; O2SAT 100; BMI 22.1
--- NOTE | 2020-12-17 03:08 | US_ITS ---
STUDY: SECOND AND THIRD TRIMESTER OBSTETRICAL ULTRASOUND REASON FOR EXAM: Female, 30 years old Vaginal bleeding, 14 weeks TECHNIQUE: Transabdominal TECHNICAL QUALITY: Adequate. PRIOR ULTRASOUND: None. FINDINGS: There is a single intrauterine fetus. The fetus is in a cephalic presentation. There is demonstrated cardiac activity with a heart rate of 157 bpm. There is a normal amniotic fluid volume. The largest amniotic fluid pocket measures 2.7 cm. The amniotic fluid index (MELCHOR) is 10 cm. The placenta is anterior and low lying but not previa in location. There are Grade 0 placental changes. The cervix measures 4.6 in length. The bilateral adnexal regions are normal. BIOMETRY: BPD: 2.7: 14 weeks, 4 days HC: 10.0: 14 weeks, 4 days AC: 7.9: 14 weeks, 2 days FL: 1.5: 14 weeks, 2 days age by current US: 14 weeks, 2 days. HUGH by current US: 06/15/2021. Estimated weight: 96 grams, +/- 14 grams, 39 %. Age by LMP: 14 weeks, 2 days. HUGH by LMP: 06/15/2021. US/Init OB < 14Wks US IMPRESSION: Low-lying placenta at 0.5 cm from the internal os of the cervix. Electronically Signed: Irma Cedillo MD at 6:16 EDT Tel , Service support ,
--- NOTE | 2020-12-17 03:08 | ED.VIS.FEGU ---
HPI HPI - Female History of Present Illness Chief Complaint: Vag Bld, Preg Narrative Narrative: This patient is a 30-year-old female G2, P1 14 weeks who presents with vaginal bleeding. She did have preeclampsia with her first . She was induced at 37 weeks. No complications with delivery. She has had problems with infertility and this is via IVF. She was following with Dr. Floyd. She was having ultrasounds every 2 weeks. Her last ultrasound was about 1 week ago. She does have a confirmed intrauterine . About 2 hours before the time my evaluation she developed vaginal bleeding. She describes this as a little heavier than a menstrual period. She has changed 2 pads in 2 hours. She also complains of some mild pelvic cramping. She otherwise denies any recent medical illness such as fevers cough chest pain difficulty breathing. She takes no medications besides vitamins. [facility] Medical History (Updated 12/17/20 @ 06:[address] Jeremias Conley MD) H/O pre-eclampsia in prior , currently History of atony of uterus Home Medications vitamin#30 30 mg iron-10 mg iron-folic acid 1 mg-omg3 capsule 1 cap PO DAILY cap 04/23/19 [History Last Taken Unknown] Allergy/AdvReac Type Severity Reaction Status Date / Time azithromycin AdvReac Other Verified 12/17/20 02:14 Sulfa (Sulfonamide AdvReac Rash Verified 12/17/20 02:14 Antibiotics) Social History (Updated 04/23/19 @ 15:[address] Alfreda Mcgovern MD) Smoking Status: Never smoker alcohol intake: never substance use type: does not use caffeine: Yes what type of physical activity do you participate in: none seatbelt use: always do you feel safe at home: Yes additional social history: Alicia FLORENTINO ED Constitutional Constitutional ED: Denies fever(s) Eyes Eyes: Denies change in vision Cardiovascular Cardiovascular: Denies chest pain Respiratory/Chest Respiratory/Chest: Denies dyspnea Gastrointestinal Gastrointestinal: Denies abdominal pain, diarrhea or vomiting Genitourinary Genitourinary ED: Reports other Details: Pelvic pain, vaginal bleeding Musculoskeletal Musculoskeletal: Denies arthralgias or myalgias Integumentary Denies rash Neurologic Neurologic: Denies headache(s) Hematologic/Lymphatic Hematologic/Lymphatic: Denies easy bruising EXAM Physical Exam Const Vital Signs: 12/17/20 02:15 Temperature 98.5 F Temperature Source Oral Pulse Rate 103 H Respiratory Rate 16 Blood Pressure 126/90 H Blood Pressure Mean 102 Pulse Ox 100 Oxygen Delivery Method Room Air Positive well nourished HEENT Reports moist mucous membranes Eyes EOMs intact bilaterally Neck supple Chest Wall inspection of chest normal Resp normal respiratory effort Cardio regular rhythm Rate: tachycardic GI soft to palpation, non-tender and non-distended Neuro Sensorium / Orientation: alert Psych Mood & Affect: anxious Skin no rashes or lesions noted MDM MDM MDM Narrative Medical decision making narrative: CBC unremarkable, BMP unremarkable, blood type a negative. Pelvic ultrasound shows low-lying placenta at 0.5 cm from the internal os of the cervix. There is otherwise a single live IUP with heart tones of 157. 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 She had advised pelvic rest and close follow-up. RhoGam was administered. Patient understands to return for new or worsening symptoms and was advised on signs and symptoms to monitor for. The patient was discharged. Lab Data Labs: Laboratory Results - last 24 hr 12/17/20 12/17/20 12/17/20 03:15 03:15 03:15 WBC 10.9 RBC 4.06 L Hgb 13.5 Hct 39.7 MCV 97.8 MCH 33.3 H MCHC 34.0 RDW Std Deviation 46.3 H RDW Coeff of Chinyere 12.9 Plt Count 236 MPV 10.6 Immature Gran % (Auto) 0.300 Neut % (Auto) 67.2 Lymph % (Auto) 26.2 [place] % (Auto) 5.6 Eos % (Auto) 0.3 Baso % (Auto) 0.4 Absolute Neuts (auto) 7.3 Absolute Lymphs (auto) 2.84 Nucleated RBC % 0 Sodium 139 Potassium 3.4 L Chloride 106 Carbon Dioxide 27.0 Anion Gap 6 BUN 6 L Creatinine 0.63 Estim Creat Clear Calc 109.98 Est GFR (MDRD) Af Amer 145 Est GFR (MDRD) Non-Af 120 BUN/Creatinine Ratio 9.6 L Glucose 83 Calcium 8.6 Blood Type A NEGATIVE Radiography Diagnostic Testing: Radiology Impression Obstetrics Ultrasound 12/17/20 03:08 IMPRESSION: Low-lying placenta at 0.5 cm from the internal os of the cervix. Electronically Signed: Irma Cedillo MD at 6:16 EDT Tel , Service support , Discharge Plan Triage Chief Complaint: Vag Bld, Preg ED Provider: Jeremias Conley Dx/Rx/DC Orders Clinical Impression: Low-lying placenta, Vaginal bleeding in , Rh negative status during Instructions: ED Possible Miscarriage ... Prescriptions: No Action vitamin#30 30 mg iron-10 mg iron-folic acid 1 mg-omg3 capsule 30 mg iron-10 mg iron-1 mg capsule 1 cap PO DAILY RF: 0 Primary Care Provider: Russell Silveira III Referrals: Russell Silveira III, MD [Primary Care Provider] - Alfreda Mcgovern MD [STAFF PHYSICIAN] - Disposition Disposition: Home, self care
[2020-12-17 03:24] LABS: Absolute Lymphocyte Count 2.84 X10^3/uL (0.83-4.51); Absolute Neutrophil Count 7.3 X10^3/uL (2.0-7.7); Basophil# 0.04 X10^3/uL; Basophil% 0.4 % (0-1); Eosinophil# 0.03 X10^3/uL; Eosinophils% 0.3 % (0-5); Hematocrit 39.7 % (37-47); Hemoglobin 13.5 g/dL (12.0-15.0); Lymphocyte # 2.84 X10^3/ul (0.83-4.51); Lymphocyte % 26.2 % (19-41); Mean Corpuscular Hgb 33.3 pg (27.0-32.0); Mean Corpuscular Volume 97.8 fL (81-99); Mean Platelet Vol. 10.6 fl (6.2-12.0); Monocyte# 0.61 X10^3/uL; Monocyte% 5.6 % (0-10); NRBC Flagged by Analyzer 0 % (0-5); Neutrophil # 7.31 X10^3/uL (2.7-7.7); Neutrophil % 67.2 % (47-70); Platelet Count 236 K/mm3 (150-450); RBC Distribution Width CV 12.9 % (11.6-14.6); RBC Distribution Width SD 46.3 fl (35.1-43.9); Red Blood Count 4.06 M/mm3 (4.2-5.4); White Blood Count 10.9 K/mm3 (4.4-11.0)
[2020-12-17 03:36] LABS: Anion Gap 6 (5-15); BUN 6 mg/dL (7-18); BUN/Creat Ratio 9.6 RATIO (10-20); Calcium,Total 8.6 mg/dL (8.5-10.1); Chloride 106 mmol/L (98-107); Creatinine, Serum 0.63 mg/dL (0.55-1.02); EST Glomerular Filtration Rate 120 mL/min (>60); Est Glom Filt Rate - Afr Amer 145 mL/min (>60); Estimated Creatinine Clearance 109.98 ml/min; Glucose 83 mg/dL (74-106); Potassium 3.4 mmol/L (3.5-5.1); Sodium Level 139 mmol/L (136-145)
[2020-12-17 07:05] VITALS: BP 105/78; PULSE 62; RESP 16; O2SAT 100
== END 2020-12-17 07:06 | disposition home or self-care (01) ==
PROVIDERS: Emergency Provider Emergency Medicine; PCP Family Medicine
DX: O46.92 Antepartum hemorrhage, unspecified, second trimester (principal); R10.2 Pelvic and perineal pain; Z67.91 Unspecified blood type, Rh negative; Z3A.14 14 weeks gestation of pregnancy; Z87.59 Personal history of other complications of pregnancy, childbirth and the puerperium
CPT/HCPCS: 76801; 80048; 85025; 86900; 86901; 90384; 96372; 99282; A4216; J2790

== ENCOUNTER → 2021-01-02 16:50 | Outpatient (CLI) | payer OTHER, SELFPAY ==
[2021-01-02 16:01] VITALS: BMI 21.9
[2021-01-02 18:43] LABS: Amphetamine Urine VISTA NEGATIVE (<1000 ng/mL); Barbiturate Urine VISTA NEGATIVE (< 200 ng/mL); Benzodiazepine Urine VISTA NEGATIVE (< 200 ng/mL); Cocaine Urine VISTA NEGATIVE (< 300 ng/mL); Ecstacy Urine VISTA NEGATIVE (< 500 ng/mL); Methadone Urine VISTA NEGATIVE (< 300 ng/mL); PCP Urine VISTA NEGATIVE (< 25 ng/mL); THC Urine VISTA NEGATIVE (< 50 ng/mL); Vista UDS pH Range 6
== END ==
PROVIDERS: PCP Family Medicine; Referring Provider Obstetrics & Gynecology; Visit Provider Obstetrics & Gynecology
DX: Z34.90 Encounter for supervision of normal pregnancy, unspecified, unspecified trimester (principal); Z3A.16 16 weeks gestation of pregnancy
CPT/HCPCS: 80307

== ENCOUNTER → 2021-01-05 11:39 | Outpatient (CLI) | payer OTHER, SELFPAY ==
[2021-01-02 16:01] VITALS: BMI 21.9
--- NOTE | 2021-01-05 11:40 | US_ITS ---
STUDY: SECOND AND THIRD TRIMESTER OBSTETRICAL ULTRASOUND - LIMITED REASON FOR EXAM: Female, 30 years old well being LMP: 09/08/2020. PRIOR ULTRASOUND: Comparison is made with prior studies of December 2020. TECHNIQUE: Transabdominal TECHNICAL QUALITY: Adequate. FINDINGS: There is a single intrauterine fetus. The fetus is in an transverse lie with the head on the maternal left side. There is demonstrated cardiac activity with a heart rate of 144 bpm. There is a normal amniotic fluid volume. The largest amniotic fluid pocket measures 7.4 cm x 2.1 cm. The amniotic fluid index (MELCHOR) is within normal limits. The placenta is anterior in location and is not low lying. There are Grade 0 placental changes. The cervix measures 3.7 cm in length. BIOMETRY: Age by LMP: 17 weeks, 0 days. HUGH by LMP: 06/15/2021. age by prior US: 17 weeks, 0 days. HUGH by prior US: 06/15/2021. US/OB Limited (No Biometrics) IMPRESSION: Normal amniotic fluid. Electronically Signed: Omar Winter MD at 13:36 EDT , Service support ,
== END ==
PROVIDERS: PCP Family Medicine; Referring Provider Obstetrics & Gynecology; Visit Provider Obstetrics & Gynecology
DX: O09.90 Supervision of high risk pregnancy, unspecified, unspecified trimester (principal); Z3A.00 Weeks of gestation of pregnancy not specified
CPT/HCPCS: 76815

== ENCOUNTER → 2021-01-24 13:54 | Outpatient (CLI) | payer OTHER, SELFPAY ==
[2021-01-02 16:01] VITALS: BMI 21.9
--- NOTE | 2021-01-24 13:58 | US_ITS ---
STUDY: SECOND AND THIRD TRIMESTER OBSTETRICAL ULTRASOUND REASON FOR EXAM: Female, 30 years old anatomy scan LMP: 09/08/2020. TECHNIQUE: Transabdominal and Transvaginal TECHNICAL QUALITY: Adequate. PRIOR ULTRASOUND: None. FINDINGS: There is a single intrauterine fetus. The fetus is in a cephalic presentation. There is demonstrated cardiac activity with a heart rate of 157 bpm. There is a normal amniotic fluid volume. The largest amniotic fluid pocket measures 4.3 cm. The amniotic fluid index (MELCHOR) is within normal limits. The placenta is anterior in location and is not low lying. There are Grade 0 placental changes. The cervix measures 4.6 cm in length. The adnexal regions are not visualized. BIOMETRY: BPD: 4.48 cm: 19 weeks, 3 days HC: 16.93 cm: 19 weeks, 3 days AC: 14.84 cm: 20 weeks, 0 days FL: 3.16 cm: 19 weeks, 5 days CI: 75.5% FL/BPD: 70.5% FL/HC: FL/AC: 21.3% HC/AC: 1.14 age by current US: 19 weeks, 3 days. HUGH by current US: 06/17/2021. Estimated weight: 322 grams, +/- 48 grams, 57.3 %. age by prior US: 19 weeks, 5 days. HUGH by prior US: 06/15/2021. Age by LMP: 19 weeks, 5 days. HUGH by LMP: 04/15/2021. ANATOMY: Gender: Female Cranium: Normal lateral ventricles. Normal choroid plexus. Normal cerebellum. Normal cisterna magna. Normal face, nose and lips. Chest: Normal 4-chamber heart. Abdomen/Pelvis: Normal diaphragm. Normal stomach. Normal abdominal wall. Normal cord insertion. Normal 3 vessel cord. Normal kidneys. Normal bladder. Spine: Normal cervical spine. Normal thoracic spine. Normal lumbar spine. Normal sacrum. Extremities: Normal bilateral upper extremities. Normal bilateral lower extremities. US/OB Anatomy Scan IMPRESSION: Single live intrauterine gestation with a mean gestational age of 19 weeks and 5 days. The measurements obtained today fall within the normal expected range. Electronically Signed: Omar Winter MD at 15:44 EDT , Service support ,
== END ==
PROVIDERS: PCP Family Medicine; Referring Provider Obstetrics & Gynecology; Visit Provider Obstetrics & Gynecology
DX: Z34.92 Encounter for supervision of normal pregnancy, unspecified, second trimester (principal)
CPT/HCPCS: 76805; 76817

== ENCOUNTER → 2021-03-18 11:00 | Outpatient (CLI) | payer OTHER, SELFPAY ==
[2021-02-27 16:02] VITALS: BMI 22.8
[2021-03-18 12:23] LABS: Absolute Lymphocyte Count 1.78 X10^3/uL (0.83-4.51); Absolute Neutrophil Count 6.6 X10^3/uL (2.0-7.7); Basophil# 0.02 X10^3/uL; Basophil% 0.2 % (0-1); Eosinophil# 0.04 X10^3/uL; Eosinophils% 0.4 % (0-5); Hematocrit 32.1 % (37-47); Hemoglobin 10.8 g/dL (12.0-15.0); Lymphocyte # 1.78 X10^3/ul (0.83-4.51); Lymphocyte % 19.6 % (19-41); Mean Corp Hgb Conc 33.6 g/dL (32-36); Mean Corpuscular Hgb 32.5 pg (27.0-32.0); Mean Corpuscular Volume 96.7 fL (81-99); Mean Platelet Vol. 10.8 fl (6.2-12.0); Monocyte# 0.63 X10^3/uL; Monocyte% 6.9 % (0-10); NRBC Flagged by Analyzer 0 % (0-5); Neutrophil # 6.57 X10^3/uL (2.7-7.7); Neutrophil % 72.3 % (47-70); Platelet Count 223 K/mm3 (150-450); RBC Distribution Width CV 12.7 % (11.6-14.6); RBC Distribution Width SD 45.2 fl (35.1-43.9); Red Blood Count 3.32 M/mm3 (4.2-5.4); White Blood Count 9.1 K/mm3 (4.4-11.0)
[2021-03-18 12:58] LABS: Glucose Challenge Gest 1H 50g 135 mg/dL (70-140)
== END ==
PROVIDERS: PCP Family Medicine; Referring Provider Obstetrics & Gynecology; Visit Provider Obstetrics & Gynecology
DX: Z13.1 Encounter for screening for diabetes mellitus (principal)
CPT/HCPCS: 36415; 82950; 85025; 86850; 86900; 86901

== ENCOUNTER → 2021-03-28 06:46 | Outpatient (CLI) | payer OTHER, SELFPAY ==
[2021-02-27 16:02] VITALS: BMI 22.8
[2021-03-27 15:40] VITALS: BMI 22.8
[2021-03-28 07:44] LABS: Glucose GTT-Gestation. Fasting 77 mg/dL (<105)
[2021-03-28 08:56] LABS: Glucose GTT-Gestational 1 Hr 135 mg/dL (<190)
[2021-03-28 09:46] LABS: Glucose GTT-Gestational 2 Hr 112 mg/dL (<165)
[2021-03-28 10:26] LABS: Glucose GTT-Gestational 3 Hr 93 L (<145)
== END ==
PROVIDERS: Referring Provider Obstetrics & Gynecology; Visit Provider Obstetrics & Gynecology
DX: Z13.1 Encounter for screening for diabetes mellitus (principal)
CPT/HCPCS: 36415; 82951; 82952; 86850; 86900; 86901

== ENCOUNTER → 2021-05-16 08:43 | Outpatient (CLI) | payer OTHER, SELFPAY ==
--- NOTE | 2021-05-16 08:48 | US_ITS ---
EXAM: US SECOND OR THIRD TRIMESTER , TRANSABDOMINAL : 1990 CLINICAL INDICATION: growth TECHNIQUE: Transabdominal obstetrical ultrasound of the maternal pelvis and a second or third trimester with image documentation. This report was created using LiveProfile report generation technology. COMPARISON: None. FINDINGS: FETUS: There is an intrauterine gestation. HEART RATE: heart rate of 144 bpm. PRESENTATION: The gestation is in the cephalic position. PLACENTA: The placenta is anterior. No placenta previa. No abruption. AMNIOTIC FLUID: MELCHOR measures 13.5 cm. ANATOMY: Intracranial/face anatomy not seen. Spinal anatomy not seen. Abdominal anatomy not seen. Extremities not seen. Four-chamber heart not seen. Umbilical cord not seen. BIOMETRICS GESTATIONAL AGE: Gestational age is 35 weeks 5 days. HUGH: HUGH is 06/15/2021. EFW: Estimated weight is 2831 g. BPD: Biparietal diameter is 8.7 cm age 35 weeks 1 day. HC: Head circumference is 31.4 cm age 35 weeks 1 day. AC: Abdominal circumference is 32.7 cm age 36 weeks 4 days. FL: Femur length is 6.8 cm age 34 weeks 6 days. MATERNAL: UTERUS: Unremarkable. No myometrial mass. CERVIX: The cervix measures 5.9 cm. ADNEXA: Unremarkable. No adnexal masses. FREE FLUID: None. US/OB Limited With Biometrics IMPRESSION: Intrauterine gestation with an average ultrasound age of 35 weeks 2 days and ultrasound estimated due date of 06/18/2021. heart rate is 144 bpm and MELCHOR is 13.5 cm. at 1115 Reported and signed by: Nikunj Moise MD Electronically Signed: Nikunj Moise MD at 11:14 EDT Tel , Service support ,
== END ==
PROVIDERS: Visit Provider Obstetrics & Gynecology
DX: O99.810 Abnormal glucose complicating pregnancy (principal); O26.843 Uterine size-date discrepancy, third trimester; Z3A.00 Weeks of gestation of pregnancy not specified
CPT/HCPCS: 76816

== ENCOUNTER → 2021-05-25 13:03 | Outpatient (CLI) | payer OTHER, SELFPAY | PROVIDERS: Visit Provider Nurse Practitioner Women's Health | DX: Z34.90 Encounter for supervision of normal pregnancy, unspecified, unspecified trimester (principal) | CPT/HCPCS: 87081 ==

== ENCOUNTER → 2021-05-29 12:35 | Outpatient (CLI) | payer OTHER, SELFPAY ==
[2021-05-29 12:51] LABS: Absolute Lymphocyte Count 2.12 X10^3/uL (0.83-4.51); Basophil# 0.03 X10^3/uL; Basophil% 0.3 % (0-1); Eosinophil# 0.04 X10^3/uL; Eosinophils% 0.4 % (0-5); Hematocrit 36.9 % (37-47); Hemoglobin 12.2 g/dL (12.0-15.0); Lymphocyte # 2.12 X10^3/ul (0.83-4.51); Lymphocyte % 18.7 % (19-41); Mean Corp Hgb Conc 33.1 g/dL (32-36); Mean Corpuscular Volume 96.9 fL (81-99); Mean Platelet Vol. 10.8 fl (6.2-12.0); Monocyte# 1.07 X10^3/uL; Monocyte% 9.4 % (0-10); NRBC Flagged by Analyzer 0 % (0-5); Neutrophil # 8.01 X10^3/uL (2.7-7.7); Neutrophil % 70.6 % (47-70); Platelet Count 217 K/mm3 (150-450); RBC Distribution Width CV 13.2 % (11.6-14.6); RBC Distribution Width SD 46.6 fl (35.1-43.9); Red Blood Count 3.81 M/mm3 (4.2-5.4); White Blood Count 11.3 K/mm3 (4.4-11.0)
[2021-05-29 13:02] LABS: Protein, Urine (Random) < 6.0 mg/dL (<11.9)
[2021-05-29 13:11] LABS: ALB/GLOB Ratio 0.7 RATIO (0.9-2.4); AST(SGOT) 13 U/L (15-37); Alanine Aminotransfer ALT/SGPT 11 U/L (13-56); Albumin, Serum 2.6 g/dL (3.2-5.0); Alkaline Phosphatase 158 U/L (45-117); Anion Gap 6 (5-15); BUN 7 mg/dL (7-18); Calcium,Total 8.7 mg/dL (8.5-10.1); Chloride 106 mmol/L (98-107); Creatinine, Serum 0.54 mg/dL (0.55-1.02); EST Glomerular Filtration Rate 142 mL/min (>60); Est Glom Filt Rate - Afr Amer 172 mL/min (>60); Globulin 3.8 g/dL (2.2-4.2); Glucose 71 mg/dL (74-106); Potassium 4.2 mmol/L (3.5-5.1); Protein, Total 6.4 g/dL (6.4-8.2); Sodium Level 137 mmol/L (136-145)
== END ==
PROVIDERS: Referring Provider Obstetrics & Gynecology; Visit Provider Obstetrics & Gynecology
DX: O09.299 Supervision of pregnancy with other poor reproductive or obstetric history, unspecified trimester (principal); Z3A.00 Weeks of gestation of pregnancy not specified
CPT/HCPCS: 36415; 80053; 82570; 84156; 85025

== ENCOUNTER 2021-06-08 09:45 | Inpatient (IN) | payer OTHER, SELFPAY ==
[2021-06-08] VITALS (46 sets, daily range): BP systolic 100–136; BP diastolic 56–97; PULSE 78–108; TEMP 36.4–36.9; O2SAT 94–100; BMI 25.7
[2021-06-08] MEDS: Lactated Ringers 1,000 ML 50 ML IV (10:02)
[2021-06-08 10:27] LABS: Absolute Lymphocyte Count 2.34 X10^3/uL (0.83-4.51); Absolute Neutrophil Count 8.1 X10^3/uL (2.0-7.7); Basophil# 0.04 X10^3/uL; Basophil% 0.3 % (0-1); Eosinophil# 0.02 X10^3/uL; Eosinophils% 0.2 % (0-5); Hematocrit 38.1 % (37-47); Hemoglobin 13.1 g/dL (12.0-15.0); Lymphocyte # 2.34 X10^3/ul (0.83-4.51); Lymphocyte % 20.4 % (19-41); Mean Corp Hgb Conc 34.4 g/dL (32-36); Mean Corpuscular Hgb 32.3 pg (27.0-32.0); Mean Corpuscular Volume 93.8 fL (81-99); Monocyte# 0.87 X10^3/uL; Monocyte% 7.6 % (0-10); NRBC Flagged by Analyzer 0 % (0-5); Neutrophil # 8.11 X10^3/uL (2.7-7.7); Neutrophil % 70.9 % (47-70); Platelet Count 207 K/mm3 (150-450); RBC Distribution Width CV 13.2 % (11.6-14.6); RBC Distribution Width SD 45.3 fl (35.1-43.9); Red Blood Count 4.06 M/mm3 (4.2-5.4); White Blood Count 11.5 K/mm3 (4.4-11.0)
[2021-06-08] MEDS: Oxytocin 30 units/NS 500 ml 30 UNITS/500 ML IV.SOLN IV (12:00)
[2021-06-08] MEDS: 0.9% Normal Saline Single 100 ML IV.SOLN. INTRA-UTER (12:41)
[2021-06-08] MEDS: Lactated Ringers 500 ML 999 ML IV ×2 (17:06→21:21)
[2021-06-08] MEDS: fentaNYL-bupivacaine (epidural) 100 ML BAG EPIDURAL (18:00)
--- NOTE | 2021-06-08 21:08 | PCM.HP.BLA ---
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 Required: No Is patient in pain?: No Allergies azithromycin Adverse Reaction (Verified 06/08/21 08:54) Other Sulfa (Sulfonamide Antibiotics) Adverse Reaction (Verified 06/08/21 08:54) Rash Medications vitamin#30 30 mg iron-10 mg iron-folic acid 1 mg-omg3 capsule 1 cap PO DAILY cap 04/23/19 [History Confirmed 06/08/21] Last Menstral Period: 09/12/20 Zika: Zika virus screening: Negative : No PFSH PFSH Medical History Abnormal glucose affecting Anemia affecting H/O pre-eclampsia in prior , currently History of atony of uterus Social History Smoking Status: Never smoker alcohol intake: never substance use type: does not use caffeine: Yes what type of physical activity do you participate in: none seatbelt use: always do you feel safe at home: Yes additional social history: Catalino- Pregancy History 3 Elective abortions Hx Para 1 Spontaneous abortions Hx # Term Pregnancies Ectopic pregnancies Hx # Pregnancies Multiple births # of living children 1 Past Pregnancies Del. Date Name GA/Weeks Outcome Route Bth Weight Gen Labor Lgth Anesthesia Del Locatn Provider FOB 03/13/19 [facility] 37 live - full term Female 19 hours epidural WC RIVERA Delivery Date: 03/13/19 severe pre-e; uterine atony: IV pitocin, IM Methergine and IM Hemabale--tranexamic acid given in labor. Eladia Morrison HPI 39 WK OB Details: PROMISE LOWRY is a 31 year old who presents for routine OB visit. upon evaluation she was found to have oligo hydramnios. she denies any LOF OB Visit HUGH Calculator Estimated Delivery Date Method Current WG Current Estimate 06/15/21 Manual 39w 0d RGI Expected Delivery Route/Plan Labor Preferences- labor support person: Catalino labor intervention preferences: no pain management options preferred: epidural cut cord/dad catch: yes : yes PP control planned: vasectomy discussed possible routes of delivery and associated risks: discussed possible delivery modalities and possible indications for each including R/B/A of , VAVD, and CS. questions answered. special requests: Specific Issue/Plans covid status: vaccinated flu vaccine: given tdap vaccine: given rhogam: given LARC form signed: 04/14 movement and labor precautions reviewed. Problem list reviewed and updated with the most current plan of care details and appropriate orders placed. Relevant counseling for the gestational age provided. Continue routine care and follow up unless otherwise noted in visit notes/problem list details Initial Weight: Not Recorded Date EGA Weight BP Urine Prot Glucose FHR FuHt Pres Dilation Effaced St Visit Note 12/19/20 14w 4d 125 lb 6 oz 120/78 160 GP - work in for bleeding. Seen in ER over weekend then had bleeding when woke up this am - no bleeding now. No evidence of ASH. 01/02/21 16w 4d 124 lb 110/76 Negative Negative 165 SM- still having some spotting 01/30/21 20w 4d 129 lb 110/78 Negative Negative 155 GP - no LOF, VB, DFM, ctx. anatomy nl. Declines echo. Placenta not low-lying on anatomy. 02/27/21 24w 4d 135 lb 8 oz 112/64 Negative Negative 155 24 GP - no LOF, VB, DFM, ctx. Denies complaints. GCT next visit. Just built a house so getting settled in 03/27/21 28w 4d 138 lb 8 oz 110/70 Negative Negative 160 28 GP - no LOF, VB, dFM, ctx. Failed 1h GCT - 3h scheduled. Will get T&S to have rhogam with 3h. 03/28/21 28w 5d 139 lb 4 oz Rhogam only 04/14/21 31w 1d 138 lb 8 oz 120/78 Negative Negative 145 31 GP - no LOF, VB, DFM, ctx. Denies complaints. LARC form signed. 04/26/21 32w 6d 141 lb 122/80 120 Cephalic GP - no LOF, VB, ctx. DFM over last 24h - NST reactive. Having pain under ribs in RUQ - consistent with stretching rib pain, no abdominal pain. Reassurance provided 05/11/21 35w 0d 143 lb 2 oz 118/82 Negative Negative 130 31 SM- no vb lof good fm no reuglar ctx 05/25/21 37w 0d 146 lb 116/78 Negative Negative 138 35 Cephalic 1 30 -3 MH_no VB, LOF. Irreg CTX. Good FM. GBS 06/01/21 38w 0d 145 lb 132/84 155 35 SM- no vb lof good fm no regular ctx 06/08/21 39w 0d 144 lb 108/80 Negative Negative 145 35 1 30 -3 SM- no vb lof good fm no regular ctx SM- no vb lof good fm no regular ctx. bedside MELCHOR done and oligo at 4 cm recommend IOL ACOG First Trimester First Trimester: Discussed Second Trimester Second Trimester: Signs and Symptoms of Labor, Selecting a care provider, Reproductive Life Planning & Contreception, Care Planning, Tobacco Cessation, Depression/Anxiety and Intimate Partner Violence Third Trimester Third Trimester: Diagnostics Diagnostics Diagnostics: Blood Type A NEGATIVE Antibody Screen NEGATIVE Gest Glucose Tolerance MG/DL Glucose 1 Hr 50 gm 135 mg/dL (70-140) Hgb 12.2 g/dL (12.0-15.0) Hct 36.9 % (37-47) L Details: HIV: Urine Culture: Sequential Screen: NIPT Screen: ROS Const Reports system reviewed and no additional complaints, except as documented Card Reports system reviewed and no additional complaints, except as documented Resp Reports system reviewed and no additional complaints, except as documented GI Reports system reviewed and no additional complaints, except as documented and Reports nausea Reports system reviewed and no additional complaints, except as documented Musc Reports system reviewed and no additional complaints, except as documented Exam Const General: cooperative, healthy appearing, comfortable and anxious [facility] Head: normal to inspection Nose: external nose normal Face and sinus: normal facial exam Neck Neck: normal visual inspection, full ROM and no lymphadenopathy Thyroid: thyroid normal Chest Chest palpation & inspection: normal inspection of the chest Resp Effort & Inspection: normal respiratory effort GI Inspection: normal to inspection Palpation: soft and other (gravid uterus) Other: vertex and appropriate size for gestational age Other: Cervical Exam: Extrem General: pedal edema Results POC Urinalysis 2 Dip (Clinic) Office Urine Glucose Negative Last Edit by Ene Bundy on 06/08/21 08:56 Office Urine Protein Negative Last Edit by Ene Bundy on 06/08/21 08:56 Coding Level of Care Code OB Routine Diagnoses Uterine size-date discrepancy, third trimester O26.843 Abnormal glucose affecting O99.810 Anemia affecting O99.013 Trimester: third trimester Z3A.39 Weeks of gestation: 39 weeks History of atony of uterus Z87.59 H/O pre-eclampsia in prior , currently O09.299 Supervision of high risk , antepartum O09.90 Infertility Blood type, Rh negative Z67.91 Oligohydramnios O41.00X0 Assessment and Plan Assessment and Plan (1) Uterine size-date discrepancy, third trimester: Status: Acute Comment: growth us WNL (2) Abnormal glucose affecting : Status: Acute Comment: normal 3GTT (3) Anemia affecting : Status: Acute Qualifiers: Trimester: third trimester Qualified Code(s): O99.013 - Anemia complicating , third trimester Comment: iron added (4) : Status: Acute Qualifiers: Weeks of gestation: 39 weeks Qualified Code(s): Z3A.39 - 39 weeks gestation of Comment: carrier, genetic, and ntd screening declined. Anatomy US normal; NEG GBS (5) History of atony of uterus: Status: Acute Comment: h/o PPH (6) H/O pre-eclampsia in prior , currently : Status: Acute Comment: nl baseline CMP, P C/R, recommend 81 mg ASA (7) Supervision of high risk , antepartum: Status: Acute Comment: PRR HUGH: 06/15/21 surprise PC: Zachariah Spouse:Catalino (8) Infertility: Status: Acute Comment: Frozen Embryo Transfer- DoT-09/27/20, recommended echo at 22-24 - patient declines (9) Blood type, Rh negative: Status: Acute Comment: Rhogam given 12/17/20, 03/28/21 A Neg; rhogam PRN, 28 weeks and PP (10) Oligohydramnios: Status: Acute Comment: recommend IOL with pit/fb epi PRN Plan Details Other Orders: Orders: POC Urinalysis 2 Dip (Clinic) Today
[2021-06-08] MEDS: Lactated Ringers 1,000 ML 200 ML IV (21:12)
[2021-06-08] MEDS: Oxytocin 30 units/NS 500 ml 30 UNITS/500 ML IV.SOLN 334 UNITS IV (21:47)
--- NOTE | 2021-06-08 22:04 | EX.PCM.OBRPT ---
Assessment & Plan (1) Blood type, Rh negative: COMMENT: Rhogam given 12/17/20, 03/28/21 A Neg; rhogam PRN, 28 weeks and PP (2) Infertility: COMMENT: Frozen Embryo Transfer- DoT-09/27/20, recommended echo at 22-24 - patient declines (3) Supervision of high risk , antepartum: COMMENT: PRR HUGH: 06/15/21 surprise PC: Zachariah Spouse:Catalino (4) : QUALIFIERS: Weeks of gestation: 39 weeks Qualified Code(s): Z3A.39 - 39 weeks gestation of COMMENT: carrier, genetic, and ntd screening declined. Anatomy US normal; NEG GBS (5) Uterine size-date discrepancy, third trimester: COMMENT: growth us WNL (6) Oligohydramnios: COMMENT: recommend IOL with pit/fb epi PRN (7) Abnormal glucose affecting : COMMENT: normal 3GTT (8) Anemia affecting : QUALIFIERS: Trimester: third trimester Qualified Code(s): O99.013 - Anemia complicating , third trimester COMMENT: iron added (9) History of atony of uterus: COMMENT: h/o PPH (10) H/O pre-eclampsia in prior , currently : COMMENT: nl baseline CMP, P C/R, recommend 81 mg ASA (11) Vaginal delivery: COMMENT: IOL oligo SM 39 girl Gal Maternal Data Information HUGH Calculator Estimated Delivery Date Method Current WG Current Estimate 06/15/21 Manual 39w 0d RGI Vaginal Delivery Operative Information Date of Procedure: 06/08/21 Pre-Operative Diagnosis: Induction of labor oligohydramnios Post-Operative Diagnosis: same Surgery / Procedure Performed: Spontaneous Vaginal Delivery Type of Anesthesia: Epidural Special Medications: none Estimated Blood Loss: 100 Fluids Replaced: crystalloid Findings Description of Procedure: Patient began pushing and delivered the head in the CHERYL presentation. The head was delivered atraumatically . The anterior and posterior shoulders delivered without complication followed by the rest of the and the was placed on the maternal abdomen. Delayed cord clamping was employed for approximately 60 seconds. Cord was clamped and cut and gentle traction was applied to the cord and the placenta delivered spontaneously immediately following it was noted to be intact with three-vessel cord. The perineum and vagina were inspected and noted to have a second-degree perineal laceration that was repaired in the usual fashion with 3-0 Vicryl Rapide. EBL was 100 cc. Patient and tolerated delivery well. Presentation: CHERYL Amniotic Membrane Rupture Type: Artificial Amniotic Fluid Description: Clear Placental Delivery Description: Spontaneous Placenta Disposition: [facility] Cord Vessel Description: 3 Vessels Cord Entanglement: None Delayed Cord Clamping: Yes Post Vaginal Delivery Medications Given After Delivery: IV Pitocin Episiotomy Description: None Laceration: None Complication Complications: None Procedures Urinary/Genital [id number]: [id number] Vaginal Delivery [facility]
--- NOTE | 2021-06-08 22:06 | DCINST_ITS ---
Discharge Instructions Diet Discharge Diet: No restrictions Activity Discharge Activity: Return to Normal Activity, May Not Drive (while taking narcotic pain medications.) and May Shower May resume sexual activity in: 4-6 weeks Dressing / Incision Call your doctor if your incision/area has: Continuous Slow Oozing, Sudden Increased Bleeding, Increased Pain/ Swelling, Increased Redness and Foul Smelling Discharge Follow Up Care Please Follow Up With: Alfreda Mcgovern MD When: Call [phone] to make an appointment with your doctor in 6 weeks. If you had elevated blood pressure or 4th degree laceration, you will need to be seen in 2 weeks. Test Results: Test results from this visit will be discussed in further detail at your follow-up appointment, if applicable. Discharge Plan Admission Admit Date/Time: 06/08/21 09:45 Primary Reason for Your Visit: vaginal delivery Attending Provider: Alfreda Mcgovern Primary Care Provider: Care Physician,No Primary Discharge Orders/Prescriptions Prescriptions: New naproxen 250 MG tablet 250 - 500 mg PO Q8H PRN PRN (Reason: MILD PAIN) Qty: 30 RF: 1 Continued vitamin#30 30 mg iron-10 mg iron-folic acid 1 mg-omg3 capsule 30 mg iron-10 mg iron-1 mg capsule 1 cap PO DAILY RF: 0 ferrous sulfate [iron] 325 mg (65 mg iron) Tablet 325 mg PO DAILY RF: 0 fluticasone propionate 50 mcg/actuation [place],Suspension 1 spray INTRANASAL DAILY RF: 0 Referrals / Follow Up: Care Physician,No Primary [Primary Care Provider] - Disposition Disposition (needs filled in before D/C Order can be placed): Home, Self Care
[2021-06-08] MEDS: Methylergonovine 0.2 MG/ML Ampul IM (23:36)
[2021-06-08] MEDS: Naproxen 500 MG Tablet PO (23:54)
[2021-06-09] VITALS (7 sets, daily range): BP systolic 105–116; BP diastolic 70–77; PULSE 85–96; RESP 16–18; TEMP 36.2–36.8; O2SAT 100
[2021-06-09 00:02] LABS: Absolute Lymphocyte Count 2.11 X10^3/uL (0.83-4.51); Absolute Neutrophil Count 17.2 X10^3/uL (2.0-7.7); Basophil# 0.04 X10^3/uL; Basophil% 0.2 % (0-1); Eosinophil# 0.02 X10^3/uL; Eosinophils% 0.1 % (0-5); Hematocrit 29.8 % (37-47); Hemoglobin 10.1 g/dL (12.0-15.0); Lymphocyte # 2.11 X10^3/ul (0.83-4.51); Lymphocyte % 10.1 % (19-41); Mean Corp Hgb Conc 33.9 g/dL (32-36); Mean Corpuscular Hgb 32.2 pg (27.0-32.0); Mean Corpuscular Volume 94.9 fL (81-99); Mean Platelet Vol. 10.8 fl (6.2-12.0); Monocyte# 1.33 X10^3/uL; Monocyte% 6.4 % (0-10); NRBC Flagged by Analyzer 0 % (0-5); Neutrophil # 17.23 X10^3/uL (2.7-7.7); Neutrophil % 82.6 % (47-70); Platelet Count 180 K/mm3 (150-450); RBC Distribution Width SD 44.4 fl (35.1-43.9); Red Blood Count 3.14 M/mm3 (4.2-5.4); White Blood Count 20.9 K/mm3 (4.4-11.0)
[2021-06-09] MEDS: Acetaminophen 500 MG Tablet 1000 MG PO ×2 (02:10→10:45)
--- NOTE | 2021-06-09 07:51 | PCM.PN.OB ---
Subjective Subjective Patient doing well without complaints. Tolerating PO. Ambulating and voiding without difficulty. feeding well. Denies chest pain, shortness of breath, calf pain/swelling, fevers, chills, lightheadedness. Objective Data Objective Data Vital Signs: Vital Signs Temp Pulse BP Pulse Ox 97.9 F 87 116/77 100 06/08/21 23:50 06/09/21 00:06 06/09/21 00:05 06/09/21 00:06 Weight: 145 lb 1.027 oz Body Mass Index (BMI) 25.7 Intake & Output: Intake and Output for Last 24 Hours 06/07/21 06/08/21 06/09/21 23:59 23:59 23:59 Intake Total 2387.93 / 2387.93 333 / 333 Output Total 600 / 600 1000 / 1000 Balance 1787.93 / 1787.93 -667 / -667 Lab / Micro Data Result Diagrams: 06/08/21 23:55 Labs: Laboratory Results - last 24 hr 06/08/21 10:02: WBC 11.5 H, RBC 4.06 L, Hgb 13.1, Hct 38.1, MCV 93.8, MCH 32.3 H, MCHC 34.4, RDW Std Deviation 45.3 H, RDW Coeff of [place] 13.2, Plt Count 207, MPV 11.0, Immature Gran % (Auto) 0.600, Neut % (Auto) 70.9 H, Lymph % (Auto) 20.4, [place] % (Auto) 7.6, Eos % (Auto) 0.2, Baso % (Auto) 0.3, Absolute Neuts (auto) 8.1 H, Absolute Lymphs (auto) 2.34, Nucleated RBC % 0 06/08/21 10:02: Blood Type A NEGATIVE, Antibody Screen NEGATIVE 06/08/21 23:55: WBC 20.9 H, RBC 3.14 L, Hgb 10.1 L, Hct 29.8 L, MCV 94.9, MCH 32.2 H, MCHC 33.9, RDW Std Deviation 44.4 H, RDW Coeff of [place] 13.0, Plt Count 180, MPV 10.8, Immature Gran % (Auto) 0.600, Neut % (Auto) 82.6 H, Lymph % (Auto) 10.1 L, [place] % (Auto) 6.4, Eos % (Auto) 0.1, Baso % (Auto) 0.2, Absolute Neuts (auto) 17.2 H, Absolute Lymphs (auto) 2.11, Nucleated RBC % 0 Micro: Microbiology 06/08/21 10:05 Nasal Secretion SARS-CoV-2 Antigen (Rapid) - Final ROS Constitutional Constitutional: Reports systems reviewed and no addt'l complaints, except as documented Cardiovascular Cardiovascular: Reports systems reviewed and no addt'l complaints, except as documented Respiratory/Chest Respiratory/Chest: Reports systems reviewed and no addt'l complaints, except as documented Gastrointestinal Gastrointestinal: Reports systems reviewed and no addt'l complaints, except as documented Physical Exam Const alert, oriented x3 and no apparent distress HEENT Head and Scalp: atraumatic Resp normal respiratory effort GI soft to palpation and non-tender Bimanual Exam - Vag & Uterus: uterus non-tender Uterus Palpation: uterus fundus firm (below Umbilicus) Assessment & Plan (1) Vaginal delivery: COMMENT: IOL oligo SM 39 girl Gal (2) Blood type, Rh negative: COMMENT: Rhogam given 12/17/20, 03/28/21 A Neg; rhogam PRN, 28 weeks and PP PLAN: s/p PPD # 1 1. routine post delivery care 2. breast feeding- support given 3. rh neg give rhogam PRN 4. rubella immune
[2021-06-09] MEDS: Naproxen 500 MG Tablet PO ×2 (10:10→18:30)
[2021-06-10 03:09] VITALS: BP 109/70; PULSE 93; RESP 16; TEMP 36.2
[2021-06-10 08:30] VITALS: BP 112/77; PULSE 102; RESP 16; TEMP 36.3
--- NOTE | 2021-06-10 08:46 | PCM.PN.OB ---
Subjective Subjective Patient doing well without complaints. Tolerating PO. Ambulating and voiding without difficulty. feeding well. Denies chest pain, shortness of breath, calf pain/swelling, fevers, chills, lightheadedness. Objective Data Objective Data Vital Signs: Vital Signs Temp Pulse Resp BP Pulse Ox 97.2 F L 93 16 109/70 100 06/10/21 03:09 06/10/21 03:09 06/10/21 03:09 06/10/21 03:09 06/09/21 00:06 Oxygen Delivery Method Room Air Weight: 145 lb 1.027 oz Body Mass Index (BMI) 25.7 Intake & Output: Intake and Output for Last 24 Hours 06/08/21 06/09/21 06/10/21 23:59 23:59 23:59 Intake Total 2387.93 / 2387.93 333 / 333 Output Total 600 / 600 1999 / 1999 Balance 1787.93 / 1787.93 -1667 / -1667 Lab / Micro Data Result Diagrams: 06/08/21 23:55 Micro: Microbiology 06/08/21 10:05 Nasal Secretion SARS-CoV-2 Antigen (Rapid) - Final ROS Constitutional Constitutional: Reports systems reviewed and no addt'l complaints, except as documented Cardiovascular Cardiovascular: Reports systems reviewed and no addt'l complaints, except as documented Respiratory/Chest Respiratory/Chest: Reports systems reviewed and no addt'l complaints, except as documented Gastrointestinal Gastrointestinal: Reports systems reviewed and no addt'l complaints, except as documented Physical Exam Const alert, oriented x3 and no apparent distress HEENT Head and Scalp: atraumatic Resp normal respiratory effort GI soft to palpation and non-tender Bimanual Exam - Vag & Uterus: uterus non-tender Uterus Palpation: uterus fundus firm (below Umbilicus) Assessment & Plan (1) Blood type, Rh negative: COMMENT: Rhogam given 12/17/20, 03/28/21 A Neg; rhogam PRN, 28 weeks and PP (2) Vaginal delivery: COMMENT: IOL oligo SM 39 girl Gal PLAN: s/p PPD # 1 1. routine post delivery care 2. breast feeding- support given 3. rh positive 4. rubella immune
== END 2021-06-10 10:50 | disposition home or self-care (01) | DRG 807 ==
PROVIDERS: Admitting Provider Obstetrics & Gynecology; Visit Provider Obstetrics & Gynecology
DX: O41.03X0 Oligohydramnios, third trimester, not applicable or unspecified (principal); D64.9 Anemia, unspecified; O99.02 Anemia complicating childbirth; O26.893 Other specified pregnancy related conditions, third trimester; O70.1 Second degree perineal laceration during delivery; Z37.0 Single live birth; Z3A.39 39 weeks gestation of pregnancy
CPT/HCPCS: 59025; 59050; 85025; 86850; 86900; 86901; 87426; 99218; J7120; G0378

== ENCOUNTER → 2022-05-22 | Outpatient (CLI) | payer OTHER, SELFPAY ==
[2022-05-27 11:20] LABS: HPV APTIMA, High Risk Negative (Negative)
== END | disposition home or self-care (01) ==
LOC: LABSPEC 15:08
PROVIDERS: Referring Provider Nurse Practitioner Women's Health; Visit Provider Nurse Practitioner Women's Health
DX: Z12.4 Encounter for screening for malignant neoplasm of cervix (principal)
CPT/HCPCS: 87624; 88175; G0145

== ENCOUNTER → 2022-06-12 | Outpatient (CLI) | payer OTHER, SELFPAY ==
[2022-06-12 12:25] LABS: Absolute Lymphocyte Count 2.05 X10^3/uL (0.83-4.51); Absolute Neutrophil Count 3.6 X10^3/uL (2.0-7.7); Basophil# 0.06 X10^3/uL; Basophil% 0.9 % (0-1); Eosinophil# 0.04 X10^3/uL; Eosinophils% 0.6 % (0-5); Hematocrit 39.8 % (37-47); Hemoglobin 13.6 g/dL (12.0-15.0); Lymphocyte # 2.05 X10^3/ul (0.83-4.51); Lymphocyte % 32.4 % (19-41); Mean Corp Hgb Conc 34.2 g/dL (32-36); Mean Corpuscular Hgb 32.8 pg (27.0-32.0); Mean Corpuscular Volume 95.9 fL (81-99); Mean Platelet Vol. 11.6 fl (6.2-12.0); Monocyte# 0.57 X10^3/uL; NRBC Flagged by Analyzer 0 % (0-5); Neutrophil # 3.61 X10^3/uL (2.7-7.7); Neutrophil % 57.1 % (47-70); Platelet Count 203 K/mm3 (150-450); RBC Distribution Width CV 12.5 % (11.6-14.6); RBC Distribution Width SD 44.1 fl (35.1-43.9); Red Blood Count 4.15 M/mm3 (4.2-5.4); White Blood Count 6.3 K/mm3 (4.4-11.0)
[2022-06-12 13:36] LABS: ALB/GLOB Ratio 1.2 RATIO (0.9-2.4); AST(SGOT) 16 U/L (15-37); Alanine Aminotransfer ALT/SGPT 27 U/L (13-56); Albumin, Serum 3.9 g/dL (3.2-5.0); Alkaline Phosphatase 82 U/L (45-117); Anion Gap 5 (5-15); BUN 11 mg/dL (7-18); BUN/Creat Ratio 14.5 RATIO (10-20); Calcium,Total 8.7 mg/dL (8.5-10.1); Chloride 109 mmol/L (98-107); Creatinine, Serum 0.76 mg/dL (0.55-1.02); EST Glomerular Filtration Rate 95 mL/min (>60); Est Glom Filt Rate - Afr Amer 115 mL/min (>60); Globulin 3.2 g/dL (2.2-4.2); Glucose 80 mg/dL (74-106); Potassium 4.1 mmol/L (3.5-5.1); Protein, Total 7.1 g/dL (6.4-8.2); Sodium Level 140 mmol/L (136-145); Thyroid Stim Hormone (TSH) 1.07 uIU/mL (0.358-3.74)
== END | disposition home or self-care (01) ==
LOC: MFPLAB 11:08
PROVIDERS: PCP Family Medicine; Referring Provider Family Medicine; Visit Provider Family Medicine
DX: K21.9 Gastro-esophageal reflux disease without esophagitis (principal); R13.10 Dysphagia, unspecified
CPT/HCPCS: 36415; 80053; 84443; 85025

== ENCOUNTER → 2022-12-19 | Outpatient (CLI) | payer OTHER, SELFPAY ==
--- NOTE | 2022-12-19 11:40 | RAD_ITS ---
STUDY: X-RAY CHEST REASON FOR EXAM: Female, 32 years old. Shortness of breath. TECHNIQUE: Frontal and lateral views of the chest. COMPARISON: None. FINDINGS: The lungs are clear and expanded. There is no demonstrated pleural abnormality. Normal size heart. Normal mediastinum and cesar. Normal visualized pulmonary arteries. Normal visualized aortic arch and descending thoracic aorta. Normal visualized thoracic spine. Normal visualized ribs, clavicles, and shoulders. No demonstrated abnormality of the visualized soft tissue structures of the upper abdomen. RAD/Chest PA and Lateral IMPRESSION: Normal x-ray examination of the chest. Electronically Signed: Jack Méndez, at 13:11 EDT ,
[2022-12-19 15:35] LABS: Hematocrit 42.3 % (37-47); Hemoglobin 13.9 g/dL (12.0-15.0); Mean Corp Hgb Conc 32.9 g/dL (32-36); Mean Corpuscular Volume 97.2 fL (81-99); Mean Platelet Vol. 12.4 fl (6.2-12.0); Platelet Count 234 K/mm3 (150-450); RBC Distribution Width CV 12.5 % (11.6-14.6); Red Blood Count 4.35 M/mm3 (4.2-5.4); White Blood Count 7.1 K/mm3 (4.4-11.0)
[2022-12-19 15:46] LABS: D-Dimer Quantitative (DVT/PE) < 0.27 FEU/ug/m (0.27-0.49)
[2022-12-19 16:01] LABS: ALB/GLOB Ratio 1.1 RATIO (0.9-2.4); AST(SGOT) 16 U/L (15-37); Alanine Aminotransfer ALT/SGPT 18 U/L (13-56); Albumin, Serum 3.9 g/dL (3.2-5.0); Alkaline Phosphatase 54 U/L (45-117); Anion Gap 8 (5-15); BUN 6 mg/dL (7-18); BUN/Creat Ratio 7.2 RATIO (10-20); Calcium,Total 8.6 mg/dL (8.5-10.1); Chloride 109 mmol/L (98-107); Creatinine, Serum 0.84 mg/dL (0.55-1.02); EST Glomerular Filtration Rate 85 mL/min (>60); Est Glom Filt Rate - Afr Amer 103 mL/min (>60); Globulin 3.5 g/dL (2.2-4.2); Glucose 84 mg/dL (74-106); Magnesium 2.4 mg/dL (1.6-2.6); Potassium 4.2 mmol/L (3.5-5.1); Protein, Total 7.4 g/dL (6.4-8.2); Sodium Level 140 mmol/L (136-145)
== END | disposition home or self-care (01) ==
LOC: MTLAB 11:39
PROVIDERS: PCP Family Medicine; Referring Provider Family Medicine; Visit Provider Family Medicine
DX: R00.0 Tachycardia, unspecified (principal); R06.02 Shortness of breath
CPT/HCPCS: 36415; 71046; 80053; 83735; 84443; 85027; 85379

== ENCOUNTER → 2023-01-08 | Outpatient (CLI) | payer OTHER, SELFPAY ==
[2023-01-08 09:33] LABS: Internal QC Validated? YES +Cl - CLEAR BKGD; Pregnancy, Serum, hCG Quali. NEGATIVE Negative
--- NOTE | 2023-01-08 15:08 | TILTTABLE_ITS ---
Staff Staff: Shamika King and Alison Yuan Summary Pre Test Resting HR: 91 Pre Test Resting BP: 129/94 Physician Tilt Table Report Patient's Physicians Primary Care Physician: Kip Chan Indications/Diagnosis: Procedure Comments: Summary:
--- NOTE | 2023-01-08 15:08 | PCM.TILTTABL ---
Staff Staff: Shamika King and Alison Yuan Summary Pre Test Resting HR: 91 Pre Test Resting BP: 129/94 Minimum Test HR: 96 Maximum Test HR: 123 Minimum Test BP: 117/93 Maximum Test BP: 134/105 Physician Tilt Table Report Patient's Physicians Primary Care Physician: Kip Chan Molding Associate: Miguel Banks Indications/Diagnosis: Dizziness Procedure Comments: Was brought to the noninvasive lab in the postabsorptive nonsedated state. Patient's initial vitals were noted to be stable with a heart rate of 91 bpm and a blood pressure 129/94 mmHg. The patient was then placed in the 70 degree head upright tilt position. Patient had an elevation of the heart rate initially which was not sustained blood pressure was also noted to be elevated. Patient was kept in this position for approximately 25 minutes. No significant symptomatology was noted. The patient was then placed in the recumbent position. No nitroglycerin was given. Summary: Negative head upright tilt position with no significant symptomatology noted.
[2023-01-08 15:11] VITALS: BP 129/94
[2023-01-08 15:16] VITALS: BP 117/93; BP 134/105
== END | disposition home or self-care (01) ==
PROVIDERS: PCP Family Medicine; Referring Provider Family Medicine; Visit Provider Family Medicine
DX: Z00.00 Encounter for general adult medical examination without abnormal findings (principal); R42 Dizziness and giddiness
CPT/HCPCS: 36415; 84703; 93660

== ENCOUNTER → 2023-01-09 | Outpatient (CLI) | payer OTHER, SELFPAY ==
--- NOTE | 2023-01-09 14:50 | ECHOD_ITS ---
Reason For Study: SOB Procedure This was a 2D Doppler, Color Flow transthoracic echocardiogram. Exam performed in department. Left Ventricle Normal LV size. Left ventricular systolic function is normal. The estimated ejection fraction is 55 %. No regional wall motion abnormalities noted. Right Ventricle Normal RV size. Normal systolic function. Atria Normal left atrium. Normal right atrium. Mitral Valve Normal mitral valve. Tricuspid Valve Normal tricuspid valve. Aortic Valve Cannot totally exclude a bicuspid valve. Pulmonic Valve Normal pulmonic valve. Great Vessels Normal aortic root. The pulmonary artery is normal size. Normal inferior vena cava. Pericardium/Pleural No pericardial effusion. MMode/2D Measurements & Calculations LVIDd: 4.8 cm IVSd: 0.58 cm LVOT diam: 1.8 cm LVIDs: 3.2 cm LVPWd: 0.71 cm LVOT area: 2.7 cm2 RVDd: 2.8 cm FS: 32.4 % Ao root diam: 3.2 cm LAV(MOD-bp): 22.1 ml LVAd ap4: 22.9 cm2 LAV(MOD-bp) Indexed: 13.5 ml/m2 LVLd ap4: 7.7 cm LAV(MOD-sp2): 20.7 ml EDV(MOD-sp4): 59.1 ml LAV(MOD-sp4): 23.1 ml EDV(sp4-el): 58.2 ml LVAs ap4: 13.3 cm2 LVLs ap4: 6.2 cm ESV(MOD-sp4): 25.7 ml ESV(sp4-el): 24.2 ml EF(MOD-sp4): 56.5 % EF(sp4-el): 58.4 % LVAd ap2: 23.8 cm2 SV(MOD-sp4): 33.4 ml SV(MOD-sp2): 38.8 ml LVLd ap2: 7.9 cm EDV(MOD-sp2): 58.7 ml EDV(sp2-el): 60.6 ml LVAs ap2: 12.6 cm2 LVLs ap2: 6.7 cm ESV(MOD-sp2): 19.9 ml ESV(sp2-el): 20.1 ml EF(MOD-sp2): 66.0 % SV(sp4-el): 34.0 ml LA dimension(2D): 2.8 cm LA A4 area: 10.4 cm2 RA A4 area: 10.0 cm2 Time Measurements MV dec time: 0.16 sec Doppler Measurements & Calculations MV E max dany: 90.5 cm/sec Lat Peak E' Dany: 15.1 cm/sec Med Peak E' Dany: 12.6 cm/sec MV A max dany: 60.0 cm/sec E/E' lat: 6.0 E/E' med: 7.2 MV E/A: 1.5 Ao V2 max: 120.3 cm/sec LV V1 max: 93.9 cm/sec MV dec slope: 570.1 cm/sec2 Ao max P.8 mmHg LV V1 max P.5 mmHg ERICA(V,D): 2.1 cm2 PA V2 max: 104.8 cm/sec PA max PG (full): 1.8 mmHg ECHO/Echo Complete Interpretation Summary Normal LV size. Left ventricular systolic function is normal. The estimated ejection fraction is 55 %. Cannot totally exclude a bicuspid valve. Ordering Physician: Kip Chan Referring Physician: Kip Chan Performed By: Hermelinda Dillon RDCS
== END | disposition home or self-care (01) ==
LOC: CVS 14:49
PROVIDERS: PCP Family Medicine; Referring Provider Family Medicine; Visit Provider Family Medicine
DX: R06.02 Shortness of breath (principal)
CPT/HCPCS: 93306; J7040

== ENCOUNTER → 2023-04-16 | Outpatient (CLI) | payer OTHER, SELFPAY ==
--- NOTE | 2023-04-16 12:51 | STRESSREP ---
Stress Test Report Exercise stress test. 33-year-old lady with a history of chest pain Stress protocol: Resting EKG demonstrates normal sinus rhythm with a rate of 97 bpm resting blood pressure is 110/82 mmHg. The patient exercised according to the regular [facility] protocol for a total duration of 7 minutes and 36 seconds attaining a maximum heart rate of 184 bpm which was 97% of maximum predicted heart rate; the maximum workload was 10.1 metabolic equivalents. At rest there were no ST or T wave changes noted to suggest ischemia and at peak exercise upsloping ST changes only were noted which did not meet the criteria for ischemia. No clinical angina was noted the test was terminated due to the target heart rate being achieved/fatigue. The peak blood pressure was 150/90 mmHg. Rate-pressure product was 27,100. Conclusion: Normal exercise stress test with no EKG criteria for ischemia at a high workload
== END | disposition home or self-care (01) ==
LOC: CVS 08:48
PROVIDERS: PCP Family Medicine; Referring Provider Internal Medicine Cardiovascular Disease; Visit Provider Internal Medicine Cardiovascular Disease
DX: R06.02 Shortness of breath (principal)
CPT/HCPCS: 93017

== ENCOUNTER → 2023-04-22 | Outpatient (CLI) | payer OTHER, SELFPAY ==
--- NOTE | 2023-04-22 13:20 | CT_ITS ---
STUDY: CT CHEST WITH CONTRAST REASON FOR EXAM: Female, 33 years old. CHEST PAIN. Cardiac orbit examination. RADIATION DOSAGE (If Supplied By Facility): CTDIvol = ( 29.71 ) mGy, DLP = ( 1023.85 ) mGycm TECHNIQUE: Transaxial imaging was performed with the administration of 50 mL of Isovue-370 intravenous contrast material. Individualized dose optimization techniques were used for this CT. COMPARISON: No relevant priors. FINDINGS: CHEST The lungs are normal. There is no demonstrated pleural abnormality. Normal heart and pericardium. Normal mediastinum. Normal hilar regions. Normal unenhanced pulmonary arteries. Normal aorta arch and descending thoracic aorta. Normal osseous structures. There is no demonstrated abnormality of the visualized upper abdomen. CT/Limited Chest CT Cardiac Only IMPRESSION: Normal unenhanced CT chest T abdomen examination. Electronically Signed: Omar Winter MD at 15:22 EDT ,
[2023-04-22 13:25] VITALS: BP 126/85; PULSE 74; RESP 14; O2SAT 100; BMI 23.9
[2023-04-22 13:41] VITALS: BP 126/85; PULSE 74
[2023-04-22] MEDS: Nitroglycerin SL (ED/IMG/CATH) 0.4 MG TABLET SL (13:41)
[2023-04-22 13:47] VITALS: BP 120/81; PULSE 86; RESP 15; O2SAT 100
--- NOTE | 2023-04-23 08:29 | CCTA.WCONT ---
CCTA w/Cont Coronary Arteries Date of Study:: 04/22/23 Chest pain Coronary Calcium Scoring: High-resolution Computed Tomographic imaging of the chest was performed on [04/22/2023], with particular attention paid to the coronary arteries. Intravenous contrast agent was administered per protocol and images reconstructed and displayed. LEFT MAIN CORONARY ARTERY: Normal [] LEFT ANTERIOR DESCENDING CORONARY ARTERY: Normal with no significant stenosis noted [] LEFT CIRCUMFLEX CORONARY ARTERY: Normal with no evidence of atherosclerotic plaquing [] RIGHT CORONARY ARTERY: Arising from the right coronary cusp with no atherosclerotic plaquing. [] Conclusion: Normal coronary CTA with no evidence of stenosis present.
== END | disposition home or self-care (01) ==
LOC: CT 13:13
PROVIDERS: PCP Family Medicine; Referring Provider Internal Medicine Cardiovascular Disease; Visit Provider Internal Medicine Cardiovascular Disease
DX: R06.02 Shortness of breath (principal)
CPT/HCPCS: 75574; 76380; Q9967; A4216

== ENCOUNTER → 2024-03-05 | Outpatient (CLI) | payer OTHER, SELFPAY ==
--- NOTE | 2024-03-05 14:43 | RAD_ITS ---
STUDY: X-RAY CHEST REASON FOR EXAM: Female, 34 years old. BRONCHITIS TECHNIQUE: PA and lateral views of the chest. COMPARISON: 12/19/2022 FINDINGS: The lungs are clear and expanded. There is no demonstrated pleural abnormality. Normal size heart. Normal mediastinum and cesar. Normal visualized pulmonary arteries. Normal visualized aortic arch and descending thoracic aorta. Normal visualized thoracic spine. Normal visualized ribs, clavicles, and shoulders. There is no demonstrated abnormality of the visualized soft tissue structures of the upper abdomen. RAD/Chest PA and Lateral IMPRESSION: Normal x-ray examination of the chest. Electronically Signed: Dariusz Rosenberg MD at 9:15 EDT ,
== END | disposition home or self-care (01) ==
PROVIDERS: PCP Family Medicine; Referring Provider Family Medicine; Visit Provider Family Medicine
DX: J20.9 Acute bronchitis, unspecified (principal)
CPT/HCPCS: 71046